=== PATIENT | male | born 1965 | race Caucasian/White ===

== ENCOUNTER → 2019-04-05 09:26 | Outpatient (CLI) | payer OTHER, SELFPAY ==
[2019-04-05 10:16] LABS: Add Manual Diff / Slide Review NO; Basophils Absolute Auto 0 /uL (0-100); Basophils Percent Auto 0.5 % (0-2); Eosinophils Absolute Auto 100 /uL (0-450); Eosinophils Percent Auto 1.5 % (2-4); Hematocrit 44.5 % (41-53); Hemoglobin 15.3 g/dL (13.5-17.5); Lymphocytes Absolute Auto 1800 /uL (1100-4500); Lymphocytes Percent Auto 20.2 % (25-40); Mean Corpuscular HGB Conc 34.4 % (30-36); Mean Corpuscular Hemoglobin 27.5 PG (26-34); Mean Corpuscular Volume 79.9 fL (80-100); Monocytes Absolute Auto 600 /uL (0-900); Monocytes Percent Auto 6.3 % (3-14); Neutrophils Absolute Auto 6300 /uL (1500-7000); Neutrophils Percent Auto 71.5 % (50-75); Platelet Count 287 X10^3/uL (150-400); Red Blood Cell Count 5.57 X10^6/uL (4.5-5.9); Red Cell Distribution Width 14.8 % (11.6-14.8); White Blood Cell Count 8.9 X10^3/uL (4.5-11.0)
[2019-04-05 10:22] LABS: HEMOLYSIS 16 (0-50); Iron 56 ug/dL (49-181)
[2019-04-05 10:24] LABS: Blood Urea Nitrogen 20 mg/dL (9-20); Calcium 9.7 mg/dL (8.4-10.2); Carbon Dioxide 31 mmol/L (22-32); Chloride 98 mmol/L (98-107); Estimated Glomerular Filt Rate > 60.0 mL/min (>60); Glucose 120 mg/dL (70-100); HEMOLYSIS 15 (0-50); Potassium 3.5 mmol/L (3.4-5.1); Sodium 139 mmol/L (137-145)
[2019-04-05 10:33] LABS: Percent Iron Saturation 16 % (20-50); Total Iron Binding Capacity 348 ug/dL (261-462); Transferrin 300 mg/dL (206-381)
[2019-04-05 10:42] LABS: Free T3, Triiodothyronine Free 2.89 pg/mL (2.77-5.27); Free T4, Direct Thyroxine 0.85 ng/dL (0.78-2.19)
[2019-04-05 10:55] LABS: Thyroid Stimulating Hormone 1.04 uIU/mL (0.47-4.68)
[2019-04-05 11:02] LABS: Ferritin 60.7 ng/mL (17.9-464)
[2019-04-05 11:16] LABS: Vitamin B12 528 pg/mL (239-931)
== END ==
PROVIDERS: Visit Provider Internal Medicine
DX: E03.9 Hypothyroidism, unspecified (principal); R60.9 Edema, unspecified; D64.9 Anemia, unspecified; E78.5 Hyperlipidemia, unspecified
CPT/HCPCS: 36415; 80048; 82607; 82728; 83540; 83550; 84439; 84443; 84481; 85025

== ENCOUNTER 2019-04-06 19:18 | Emergency (ER) | payer OTHER, SELFPAY ==
[2019-04-06 19:31] VITALS: BP 129/88; PULSE 100; RESP 14; TEMP 37.4; O2SAT 98
--- NOTE | 2019-04-06 19:35 | ED.ABDPAIN ---
HPI - Abdominal Pain General Chief Complaint: Abdominal Pain Stated Complaint: states severe abdominal pain Time Seen by Provider: 04/06/19 19:35 Source: patient Mode of arrival: ambulatory Limitations: no limitations History of Present Illness HPI narrative: 53-year-old individual here for evaluation of left lower abdomen pain. Patient states that it started within the past 24-36 hours. Patient does state that she has had diverticulitis in the past and this feels somewhat like that. 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 She also states that she has some urinary symptoms. No diarrhea. No constipation. No vomiting. No fevers. Related Data Previous Rx's Medication Instructions Recorded amoxicillin-pot clavulanate 1 tab PO Q8HR 7 Days #21 tab 04/06/19 [Augmentin] ondansetron HCl 4 mg PO Q6-8H PRN #10 tab 04/06/19 oxycodone-acetaminophen [Percocet] 1 tab PO Q4-6H PRN #10 tab 04/06/19 Allergies Allergy/AdvReac Type Severity Reaction Status Date / Time codeine Allergy Nausea Verified 04/06/19 20:56 Sulfa (Sulfonamide Allergy Hives Verified 04/06/19 20:57 Antibiotics) metronidazole [From Flagyl] AdvReac Nausea Verified 04/06/19 20:57 Review of Systems Constitutional Denies fever(s) Cardiovascular Denies chest pain and Denies dyspnea Respiratory Denies dyspnea Gastrointestinal Gastrointestinal: Reports abdominal pain, Denies change in stool character and Denies vomiting Genitourinary Reports dysuria Musculoskeletal Denies myalgias and Denies arthralgias Integumentary/Breasts Denies rash Hematologic/Lymphatic Denies easy bleeding and Denies easy bruising [facility] Medical History Diverticulitis (Acute) Social History lives independently: Yes Social History lives independently: Yes Exam Initial Vital Signs Initial Vital Signs: Vital Signs Temperature 99.4 F 04/06/19 19:31 Pulse Rate 100 H 04/06/19 19:31 Respiratory Rate 14 04/06/19 19:31 Blood Pressure 129/88 04/06/19 19:31 Pulse Oximetry 98 04/06/19 19:31 Const General: cooperative, well groomed and No acute distress Orientation: alert and awake HENMT Head: normal to inspection and normocephalic Resp Effort & Inspection: normal respiratory effort Cardio Rate: regular rate Rhythm: regular rhythm GI Inspection: non-distended Palpation: soft, No firm and tender (Left-sided abdomen with some guarding) Back/Spine/Pelvis Back: No CVA tenderness Skin Lesions: no lesions Rashes: no rashes Neuro General: alert and awake Cognition: normal cognition Speech: speech normal Extrem General: normal to inspection and capillary refill normal Psych Appearance: grossly normal and well kempt Course Orders Ordered: ED Orders 04/06/19 19:30 Complete Blood Count AUTO DIFF Stat Comprehensive Metabolic Panel Stat Lactate (Lactic Acid) Stat Lipase Stat 04/06/19 19:44 CT abdomen pelvis w con Stat Discontinued Medications Amoxicillin/Clavulanate Potassium (Augmentin 875-125 Mg) 1 tab PO NOW ONE Stop: 04/06/19 20:37 Last Admin: 04/06/19 20:52 Dose: 1 tab Sodium Chloride (Normal Saline 0.9%) 1,000 mls @ 1,000 mls/hr IV BOLUS ONE Stop: 04/06/19 20:42 Last Infusion: 04/06/19 22:16 Dose: 0 mls/hr Admin: 04/06/19 19:56 Dose: 1,000 mls/hr Morphine Sulfate (Morphine) 4 mg IV NOW ONE Stop: 04/06/19 19:44 Last Admin: 04/06/19 19:56 Dose: 4 mg Ondansetron HCl (Zofran) 4 mg IV NOW ONE Stop: 04/06/19 19:44 Last Admin: 04/06/19 19:56 Dose: 4 mg Vital Signs - 8 hr 04/06/19 19:31 04/06/19 22:17 Temperature 99.4 F 98.5 F Pulse Rate 100 H 88 Respiratory Rate 14 14 Blood Pressure 129/88 108/63 Pulse Oximetry 98 99 MDM - Abdominal Pain Lab Data Attestation: I reviewed the patient's lab results. Result diagrams: 04/06/19 19:30 04/06/19 19:30 Lab Results 04/06/19 04/06/19 04/06/19 Range/Units 19:30 19:30 19:30 WBC 13.2 H (4.5-11.0) X10^3/uL RBC 5.93 H (4.5-5.9) X10^6/uL Hgb 16.1 (13.5-17.5) g/dL Hct 47.4 (41-53) % MCV 79.8 L (80-100) fL MCH 27.1 (26-34) PG MCHC 34.0 (30-36) % RDW 14.4 (11.6-14.8) % Plt Count 293 (150-400) X10^3/uL Neut % (Auto) 78.8 H (50-75) % Lymph % (Auto) 13.8 L (25-40) % [place] % (Auto) 6.4 (3-14) % Eos % (Auto) 0.5 L (2-4) % Baso % (Auto) 0.5 (0-2) % Neut # (Auto) 92526 H (5590-5191) /uL Lymph # (Auto) 1800 (9769-2809) /uL [place] # (Auto) 800 (0-900) /uL Eos # (Auto) 100 (0-450) /uL Baso # (Auto) 100 (0-100) /uL Sodium 137 (137-145) mmol/L Potassium 3.3 L (3.4-5.1) mmol/L Chloride 96 L (98-107) mmol/L Carbon Dioxide 30 (22-32) mmol/L BUN 11 (9-20) mg/dL Creatinine 0.80 (0.66-1.25) mg/dL Estimated GFR > 60.0 (>60) mL/min BUN/Creatinine Ratio 13.8 (6-22) Glucose 109 H (70-100) mg/dL Lactate 0.7 (0.7-2.1) mmol/L Calcium 9.4 (8.4-10.2) mg/dL Total Bilirubin 0.9 (0.2-1.3) mg/dL AST 21 (17-59) IU/L ALT 21 (21-72) IU/L Alkaline Phosphatase 153 H (38-126) U/L Total Protein 8.2 (6.3-8.2) g/dL Albumin 4.7 (3.5-5.0) g/dL Globulin 3.5 (1.7-4.1) g/dL Albumin/Globulin Ratio 1.3 (1.0-2.8) Lipase 59 (23-300) U/L Point of care testing: Urine Dip Bedside Urine Glucose Negative Bedside Urine Occult Blood - Negative Bedside Urine Protein - Negative Bedside Urine Urobilinogen - Negative Bedside Urine Nitrite - Negative Bedside Urine Leukocytes - Negative Esterase Imaging Data CT scan - abdomen: Radiologist's impression: [address] [address] [address] Scan Report Signed Patient: Katia Galloway JMR#: [id number] : 1965Acct:[id number] Age/Sex: 53 / MDate of Service: 04/06/19 Loc: ED Accession Number: [id number] Procedure: CT abdomen pelvis w con Ordering Provider: Ramon Ron D.O. PROCEDURE: CT ABDOMEN PELVIS W CON INDICATIONS: Left-sided abdominal pain TECHNIQUE: After the administration of intravenous contrast, 5 mm thick sections acquired from the diaphragm to the symphysis. 5 mm coronal and sagittal reformats were acquired. For radiation dose reduction, the following was used: automated exposure control, adjustment of mA and/or kV according to patient size. COMPARISON: None. FINDINGS: Image quality: Excellent. ABDOMEN: Lung bases: Lung bases are clear. Heart size is normal. Solid organs: Liver is normal in size and enhancement. Gallbladder is unremarkable . Biliary system is non dilated. Pancreas enhances normally. Spleen is normal in size and enhancement. No adrenal nodules. Kidneys demonstrate normal size and enhancement, without hydronephrosis. Peritoneum and bowel: Moderate sigmoid colon diverticulitis, (2/63). Mild diverticulosis. There is mild thickening of the sigmoid colon. The appendix is located in the pelvis and is normal in caliber. Nodes and vessels: No retroperitoneal or mesenteric adenopathy by size criteria. Aorta and inferior vena cava are normal in size. Miscellaneous: Small fat-containing ventral abdominal wall hernias. PELVIS: Genitourinary: Bladder is unremarkable. The uterus is surgically absent. Ovaries appear normal. There is trace free fluid in the pelvis. Miscellaneous: Small fat containing angle hernias. No suspicious adenopathy. Bones: No suspicious bony lesions. No vertebral body compression fractures. IMPRESSION: Moderate sigmoid colon acute diverticulitis. No abscess demonstrated. Recommend followup CT or colonoscopy if not recently performed at resolution to evaluate for underlying mass lesion. Comment: Findings were discussed with Dr. Ramon Ron at the time of dictation. Dictated by: Sebastian Lantigua M.D. on 04/06/2019 at 20:18 Approved by: Sebastian Lantigua M.D. on 04/06/2019 at 20:29 MDM Narrative Medical decision making narrative: CT scan confirms diverticulitis. Urinalysis unremarkable. Patient states that she can take Percocet. She states she cannot take Flagyl because it makes her very nauseated. She has had Augmentin in the past. She was given dose of Augmentin here in the ER and tolerated without any problems. Will send home with Percocet and Zofran and a prescription for the Augmentin. She was given return precautions and follow-up instructions. She expressed understanding and agreement with plan. Discharge Plan Departure Patient Disposition: Home Clinical Impression: Diverticulitis Discharge Date/Time: 04/06/19 22:18 Interventions: ED Discharge Assessment Last Done: 04/06/19 22:17 Instructions: DI for Diverticulitis Activity Restrictions/Additional Instructions: Take the antibiotics as directed. Contact your primary provider on Monday for a follow-up. Return to the emergency department for any new or worsening symptoms Prescriptions: New ondansetron HCl 4 mg tablet 4 mg PO Q6-8H PRN (Reason: nausea and vomiting) Qty: 10 RF: 0 oxycodone-acetaminophen [Percocet] 5-325 mg tablet 1 tab PO Q4-6H PRN (Reason: pain) Qty: 10 RF: 0 amoxicillin-pot clavulanate [Augmentin] 875-125 mg tablet 1 tab PO Q8HR 7 Days Qty: 21 RF: 0
--- NOTE | 2019-04-06 19:44 | DI.CT.S_ITS ---
PROCEDURE: CT ABDOMEN PELVIS W CON INDICATIONS: Left-sided abdominal pain TECHNIQUE: After the administration of intravenous contrast, 5 mm thick sections acquired from the diaphragm to the symphysis. 5 mm coronal and sagittal reformats were acquired. For radiation dose reduction, the following was used: automated exposure control, adjustment of mA and/or kV according to patient size. COMPARISON: None. FINDINGS: Image quality: Excellent. ABDOMEN: Lung bases: Lung bases are clear. Heart size is normal. Solid organs: Liver is normal in size and enhancement. Gallbladder is unremarkable . Biliary system is non dilated. Pancreas enhances normally. Spleen is normal in size and enhancement. No adrenal nodules. Kidneys demonstrate normal size and enhancement, without hydronephrosis. Peritoneum and bowel: Moderate sigmoid colon diverticulitis, (2/63). Mild diverticulosis. There is mild thickening of the sigmoid colon. The appendix is located in the pelvis and is normal in caliber. Nodes and vessels: No retroperitoneal or mesenteric adenopathy by size criteria. Aorta and inferior vena cava are normal in size. Miscellaneous: Small fat-containing ventral abdominal wall hernias. PELVIS: Genitourinary: Bladder is unremarkable. The uterus is surgically absent. Ovaries appear normal. There is trace free fluid in the pelvis. Miscellaneous: Small fat containing angle hernias. No suspicious adenopathy. Bones: No suspicious bony lesions. No vertebral body compression fractures. IMPRESSION: Moderate sigmoid colon acute diverticulitis. No abscess demonstrated. Recommend followup CT or colonoscopy if not recently performed at resolution to evaluate for underlying mass lesion. Comment: Findings were discussed with Dr. Ramon Ron at the time of dictation. Dictated by: Sebastian Lantigua M.D. on 04/06/2019 at 20:18 Approved by: Sebastian Lantigua M.D. on 04/06/2019 at 20:29
[2019-04-06] MEDS: SODIUM CHLORIDE 0.9% 1,000 ML 1000 ML IV (19:56)
[2019-04-06] MEDS: ONDANSETRON 4 MG/2 ML INJ IV (19:56)
[2019-04-06] MEDS: MORPHINE 4 MG/ML INJ IV (19:56)
[2019-04-06 20:07] LABS: Alanine Aminotransferase 21 IU/L (21-72); Albumin 4.7 g/dL (3.5-5.0); Albumin Globulin Ratio 1.3 (1.0-2.8); Alkaline Phosphatase 153 U/L (38-126); Aspartate Aminotransferase 21 IU/L (17-59); BUN Creatinine Ratio 13.8 (6-22); Bilirubin Total 0.9 mg/dL (0.2-1.3); Blood Urea Nitrogen 11 mg/dL (9-20); Calcium 9.4 mg/dL (8.4-10.2); Carbon Dioxide 30 mmol/L (22-32); Chloride 96 mmol/L (98-107); Estimated Glomerular Filt Rate > 60.0 mL/min (>60); Globulin 3.5 g/dL (1.7-4.1); Glucose 109 mg/dL (70-100); HEMOLYSIS 18 (0-50); Lactate (Lactic Acid) 0.7 mmol/L (0.7-2.1); Lipase 59 U/L (23-300); Potassium 3.3 mmol/L (3.4-5.1); Sodium 137 mmol/L (137-145); Total Protein 8.2 g/dL (6.3-8.2)
[2019-04-06 20:24] LABS: Add Manual Diff / Slide Review NO; Basophils Absolute Auto 100 /uL (0-100); Basophils Percent Auto 0.5 % (0-2); Eosinophils Absolute Auto 100 /uL (0-450); Eosinophils Percent Auto 0.5 % (2-4); Hematocrit 47.4 % (41-53); Hemoglobin 16.1 g/dL (13.5-17.5); Lymphocytes Absolute Auto 1800 /uL (1100-4500); Lymphocytes Percent Auto 13.8 % (25-40); Mean Corpuscular Hemoglobin 27.1 PG (26-34); Mean Corpuscular Volume 79.8 fL (80-100); Monocytes Absolute Auto 800 /uL (0-900); Monocytes Percent Auto 6.4 % (3-14); Neutrophils Absolute Auto 10400 /uL (1500-7000); Neutrophils Percent Auto 78.8 % (50-75); Platelet Count 293 X10^3/uL (150-400); Red Blood Cell Count 5.93 X10^6/uL (4.5-5.9); Red Cell Distribution Width 14.4 % (11.6-14.8); White Blood Cell Count 13.2 X10^3/uL (4.5-11.0)
[2019-04-06] MEDS: AMOXICILLIN/CLAV 875/125 MG 1 TAB PO (20:52)
[2019-04-06 22:17] VITALS: BP 108/63; PULSE 88; RESP 14; TEMP 36.9; O2SAT 99
== END 2019-04-06 22:18 | disposition home or self-care (01) ==
PROVIDERS: Emergency Provider Emergency Medicine
DX: K57.92 Diverticulitis of intestine, part unspecified, without perforation or abscess without bleeding (principal)
CPT/HCPCS: 36591; 74177; 80053; 81003; 83605; 83690; 85025; 96361; 96374; 96375; 99283; 99284; J2270; J2405; Q9967

== ENCOUNTER → 2019-04-22 15:40 | Outpatient (CLI) | payer OTHER, SELFPAY ==
[2019-04-22 16:05] LABS: Add Manual Diff / Slide Review NO; Basophils Absolute Auto 100 /uL (0-100); Basophils Percent Auto 1.4 % (0-2); Eosinophils Absolute Auto 200 /uL (0-450); Eosinophils Percent Auto 1.8 % (2-4); Hematocrit 44.8 % (36-46); Lymphocytes Absolute Auto 2300 /uL (1100-4500); Lymphocytes Percent Auto 23.4 % (25-40); Mean Corpuscular HGB Conc 33.5 % (30-36); Mean Corpuscular Hemoglobin 26.9 PG (26-34); Mean Corpuscular Volume 80.2 fL (80-100); Monocytes Absolute Auto 700 /uL (0-900); Monocytes Percent Auto 6.9 % (3-14); Neutrophils Absolute Auto 6600 /uL (1500-7000); Neutrophils Percent Auto 66.5 % (50-75); Platelet Count 329 X10^3/uL (150-400); Red Blood Cell Count 5.59 X10^6/uL (4.0-5.2); Red Cell Distribution Width 14.1 % (11.6-14.8)
[2019-04-22 16:29] LABS: Erythrocyte Sedimentation Rate 4 MM/HR (0-20)
[2019-04-22 17:21] LABS: Alanine Aminotransferase 11 IU/L (9-52); Albumin 4.3 g/dL (3.5-5.0); Albumin Globulin Ratio 1.5 (1.0-2.8); Alkaline Phosphatase 135 U/L (38-126); Aspartate Aminotransferase 17 IU/L (14-36); BUN Creatinine Ratio 24.3 (6-22); Bilirubin Total 0.3 mg/dL (0.2-1.3); Blood Urea Nitrogen 17 mg/dL (7-17); Calcium 9.5 mg/dL (8.4-10.2); Carbon Dioxide 32 mmol/L (22-32); Chloride 96 mmol/L (98-107); Estimated Glomerular Filt Rate > 60.0 mL/min (>60); Globulin 2.9 g/dL (1.7-4.1); Glucose 92 mg/dL (70-100); HEMOLYSIS < 15 (0-50); Potassium 3.9 mmol/L (3.4-5.1); Sodium 137 mmol/L (137-145); Total Protein 7.2 g/dL (6.3-8.2)
== END ==
PROVIDERS: PCP Internal Medicine; Visit Provider Internal Medicine
DX: K57.32 Diverticulitis of large intestine without perforation or abscess without bleeding (principal)
CPT/HCPCS: 36415; 80053; 85025; 85651

== ENCOUNTER → 2019-04-23 12:46 | Outpatient (CLI) | payer OTHER, SELFPAY ==
--- NOTE | 2019-04-23 | DI.CT.S_ITS ---
PROCEDURE: CT ABDOMEN PELVIS W CON INDICATIONS: Diverticulitis of large intestine TECHNIQUE: After the administration of oral and intravenous contrast, 5 mm thick sections acquired from the diaphragms to the symphysis. 5 mm thick coronal and sagittal reformats were performed. For radiation dose reduction, the following was used: automated exposure control, adjustment of mA and/or kV according to patient size. COMPARISON: [facility], CT, CT ABDOMEN PELVIS W CON, 04/06/2019, 19:51. FINDINGS: Image quality: Excellent. ABDOMEN: Lung bases: Lung bases are clear. Heart size is normal. Solid organs: Liver is normal in size and enhancement. Gallbladder appears normal. Biliary system is non-dilated. Pancreas enhances normally. Spleen is normal in size and enhancement. No adrenal nodules. Kidneys are normal in size and enhancement, without hydronephrosis. Peritoneum and bowel: Stomach, small bowel, and colon loops are normal in caliber and wall thickness. No free fluid or air. Several surgical clips are present in the epigastrium near the stomach. Nodes and vessels: No retroperitoneal or mesenteric adenopathy. Aorta and inferior vena cava are normal in caliber. Miscellaneous: No ventral hernias. PELVIS: Genitourinary: Bladder wall thickness is normal. Miscellaneous: No inguinal hernias or adenopathy. Acute diverticulitis present 04/06/19 at the left lower quadrant has resolved. Diverticulosis in this area remains present but no acute diverticulitis is found. There is an air-filled tubular structure that had been previously identified and is better seen on the current study that represents a relatively elongated but uninflamed appendix, crossing the midline posteriorly and terminating with its tip adjacent to the left ovary which contains a 2.6 cm cyst. Bones: No suspicious bony lesions. No vertebral body compression fractures. IMPRESSION: Resolution of acute diverticulitis present at the end of March of this year. This was located at the left lower quadrant, sigmoid colon origin. Sigmoid diverticulosis remains but no acute diverticulitis is currently present. The prior study had identified a small tubular gas-filled structure of uncertain origin and clinical significance. It is better seen on this study and represents a relatively elongated but otherwise normal appendix. The appendiceal tip terminates adjacent to the left ovary which contains a 2.6 cm simple appearing cyst. No followup of this finding is recommended. Dictated by: Karri Carrington M.D. on 04/23/2019 at 16:33 Approved by: Karri Carrington M.D. on 04/23/2019 at 16:43
== END ==
PROVIDERS: PCP Internal Medicine; Visit Provider Internal Medicine
DX: K57.30 Diverticulosis of large intestine without perforation or abscess without bleeding (principal); N83.202 Unspecified ovarian cyst, left side
CPT/HCPCS: 74177; Q9967

== ENCOUNTER → 2019-06-13 12:06 | Outpatient (CLI) | payer OTHER, SELFPAY | PROVIDERS: PCP Internal Medicine | DX: Z23 Encounter for immunization (principal) | CPT/HCPCS: 90471; 90686 ==

== ENCOUNTER → 2019-08-14 07:53 | Outpatient (CLI) | payer OTHER, SELFPAY ==
--- NOTE | 2019-08-14 | DI.MG.S_ITS ---
BILATERAL DIGITAL SCREENING MAMMOGRAM 3D/2D WITH CAD: 08/14/2019 CLINICAL: Routine screening. Comparison is made to exams dated: 04/23/2018 mammogram and 03/01/2017 mammogram - [facility]. There are scattered fibroglandular elements in both breasts. Current study was also evaluated with a Computer Aided Detection (CAD) system. No significant masses, calcifications, or other findings are seen in either breast. There has been no significant interval change. IMPRESSION: NEGATIVE There is no mammographic evidence of malignancy. A 1 year screening mammogram is recommended. This exam was interpreted at Station ID: [id number]. NOTE: For mammograms, a report in lay terms will be sent to the patient. Approximately 15% of breast malignancies will not be visualized mammographically. In the management of a palpable breast mass, a negative mammogram must not discourage biopsy of a clinically suspicious lesion. Electronically Signed By: Deon rojas/antonino:08/14/2019 11:20:53 letter sent: Normal Exam ACR BI-RADS Category 1: Negative 3341F
== END ==
PROVIDERS: PCP Family Medicine; Visit Provider Family Medicine
DX: Z12.31 Encounter for screening mammogram for malignant neoplasm of breast (principal)
CPT/HCPCS: 77063; 77067

== ENCOUNTER → 2019-10-08 07:12 | Outpatient (CLI) | payer OTHER, SELFPAY ==
[2019-10-08 08:15] LABS: Add Manual Diff / Slide Review NO; Basophils Absolute Auto 100 /uL (0-100); Basophils Percent Auto 0.8 % (0-2); Eosinophils Absolute Auto 200 /uL (0-450); Eosinophils Percent Auto 2.8 % (2-4); Hematocrit 44.8 % (36-46); Lymphocytes Absolute Auto 1700 /uL (1100-4500); Mean Corpuscular HGB Conc 33.5 % (30-36); Mean Corpuscular Hemoglobin 26.9 PG (26-34); Mean Corpuscular Volume 80.3 fL (80-100); Monocytes Absolute Auto 500 /uL (0-900); Monocytes Percent Auto 6.7 % (3-14); Neutrophils Absolute Auto 5000 /uL (1500-7000); Neutrophils Percent Auto 66.7 % (50-75); Platelet Count 300 X10^3/uL (150-400); Red Blood Cell Count 5.58 X10^6/uL (4.0-5.2); Red Cell Distribution Width 14.8 % (11.6-14.8); White Blood Cell Count 7.5 X10^3/uL (4.5-11.0)
[2019-10-08 08:22] LABS: Hemoglobin A1C% w Est Avg Glu 5.2 % (4.0-6.0)
[2019-10-08 08:35] LABS: Erythrocyte Sedimentation Rate 3 MM/HR (0-20)
[2019-10-08 08:41] LABS: Iron 54 ug/dL (37-170)
[2019-10-08 08:46] LABS: Alanine Aminotransferase 34 IU/L (<35); Albumin 4.4 g/dL (3.5-5.0); Albumin Globulin Ratio 1.3 (1.0-2.8); Alkaline Phosphatase 112 U/L (38-126); Aspartate Aminotransferase 32 IU/L (14-36); BUN Creatinine Ratio 22.5 (6-22); Bilirubin Total 0.5 mg/dL (0.2-1.3); Blood Urea Nitrogen 18 mg/dL (7-17); C-Reactive Protein Quant 2.8 mg/dL (<1.0); Calcium 9.3 mg/dL (8.4-10.2); Carbon Dioxide 33 mmol/L (22-32); Chloride 97 mmol/L (98-107); Estimated Glomerular Filt Rate > 60.0 mL/min (>60); Globulin 3.3 g/dL (1.7-4.1); Glucose 101 mg/dL (70-100); HEMOLYSIS < 15 (0-50); Potassium 3.4 mmol/L (3.4-5.1); Sodium 138 mmol/L (137-145); Total Protein 7.7 g/dL (6.3-8.2)
[2019-10-08 08:52] LABS: Total Iron Binding Capacity 326 ug/dL (265-497)
[2019-10-08 08:59] LABS: Free T4, Direct Thyroxine 1.25 ng/dL (0.78-2.19)
[2019-10-08 09:13] LABS: Thyroid Stimulating Hormone 0.27 uIU/mL (0.47-4.68)
[2019-10-08 09:16] LABS: Ferritin 52.5 ng/mL (11.1-264)
[2019-10-08 09:47] LABS: Folate 6.2 ng/mL (2.76-20.0); Vitamin B12 518 pg/mL (239-931)
[2019-10-10 11:54] LABS: Triiodothyronine T3 Total 118 ng/dL (76-181)
[2019-10-16 08:30] LABS: ANA Screen, IFA POSITIVE (NEGATIVE)
== END ==
PROVIDERS: PCP Internal Medicine; Visit Provider Internal Medicine
DX: R73.9 Hyperglycemia, unspecified (principal); E03.9 Hypothyroidism, unspecified; E83.10 Disorder of iron metabolism, unspecified; G89.4 Chronic pain syndrome; I10 Essential (primary) hypertension; G31.84 Mild cognitive impairment of uncertain or unknown etiology
CPT/HCPCS: 36415; 80053; 82607; 82728; 82746; 83036; 83540; 83550; 84439; 84443; 84480; 85025; 85651; 86038; 86140

== ENCOUNTER → 2019-10-29 08:02 | Outpatient (CLI) | payer OTHER, SELFPAY ==
--- NOTE | 2019-10-29 | DI.MRI.S_ITS ---
PROCEDURE: MR HEAD/BRAIN WO/W CON INDICATIONS: Weakness TECHNIQUE: Noncontrast axial T1 spin echo, axial T2 fast spin echo, sagittal and axial FLAIR, coronal T2 fast spin echo, axial gradient echo, axial diffusion and ADC through the brain. After the administration of contrast, axial and coronal 3D VIBE or T1 spin echo with fat saturation through the brain. COMPARISON: None. FINDINGS: Image quality: Excellent. CSF Spaces: Basal cisterns are patent. No extra-axial fluid collections. Ventricles are normal in size and shape. Brain: No midline shift. No intracranial bleeds or masses. No abnormal intracranial enhancement. The brainstem appears normal. Diffusion-weighted images demonstrate no acute ischemic insults. No chronic ischemic insults. Normal intravascular flow voids are present. Skull and face: Calvarial marrow is normal in signal. Orbits appear normal. Sinuses: Sinuses and mastoids appear clear. IMPRESSION: Normal for age, source of current symptoms is not seen. Dictated by: Karri Carrington M.D. on 10/29/2019 at 9:17 Approved by: Karri Carrington M.D. on 10/29/2019 at 9:19
== END ==
PROVIDERS: PCP Internal Medicine; Referring Provider Internal Medicine; Visit Provider Internal Medicine
DX: R53.1 Weakness (principal); R41.3 Other amnesia; G35 Multiple sclerosis
CPT/HCPCS: 70553

== ENCOUNTER → 2019-11-15 08:10 | Outpatient (CLI) | payer OTHER, SELFPAY ==
[2019-11-15 08:28] LABS: UR Morphine/Opiate cutoff 300 Negative (Negative); Ur Creatinine Normal (Normal); Ur Specific Gravity Normal (Normal); Urine Amphetamines Negative (Negative); Urine Barbiturates Negative (Negative); Urine Benzodiazepines Negative (Negative); Urine Cocaine Negative (Negative); Urine MDMA Negative (Negative); Urine Methadone Negative (Negative); Urine Methamphetamines Negative (Negative); Urine Oxycodone Negative (Negative); Urine Phencyclidine Negative (Negative); Urine Tetrahydrocannabinol Negative (Negative); Urine Tricyclic Antidepressant Negative (Negative); Urine pH Normal (Normal)
== END ==
PROVIDERS: PCP Internal Medicine; Visit Provider Family Medicine Sleep Medicine
DX: G47.33 Obstructive sleep apnea (adult) (pediatric) (principal); G47.12 Idiopathic hypersomnia without long sleep time; G47.19 Other hypersomnia; G47.00 Insomnia, unspecified; Z87.898 Personal history of other specified conditions
CPT/HCPCS: 80305; 95805

== ENCOUNTER → 2019-12-03 07:19 | Outpatient (CLI) | payer OTHER, SELFPAY ==
[2019-12-03 09:29] LABS: Free T4, Direct Thyroxine 1.18 ng/dL (0.78-2.19)
[2019-12-03 09:43] LABS: Thyroid Stimulating Hormone 0.16 uIU/mL (0.47-4.68)
[2019-12-04 08:38] LABS: Triiodothyronine T3 Total 97 ng/dL (71-180)
== END ==
PROVIDERS: PCP Internal Medicine; Referring Provider Internal Medicine; Visit Provider Internal Medicine
DX: E03.9 Hypothyroidism, unspecified (principal)
CPT/HCPCS: 36415; 84439; 84443; 84480

== ENCOUNTER → 2019-12-09 15:56 | Outpatient (CLI) | payer OTHER, SELFPAY ==
[2019-12-11 02:07] LABS: COVID19 Sendout Not Detected (Not Detected)
== END ==
PROVIDERS: PCP Internal Medicine; Visit Provider Family Medicine
DX: R68.89 Other general symptoms and signs (principal)
CPT/HCPCS: 87635

== ENCOUNTER → 2020-02-04 07:01 | Outpatient (CLI) | payer OTHER, SELFPAY ==
[2020-02-04 08:35] LABS: Add Manual Diff / Slide Review NO; Basophils Absolute Auto 100 /uL (0-100); Eosinophils Absolute Auto 200 /uL (0-450); Eosinophils Percent Auto 2.6 % (2-4); Hematocrit 43.4 % (36-46); Hemoglobin 14.6 g/dL (12.0-16.0); Lymphocytes Absolute Auto 1900 /uL (1100-4500); Mean Corpuscular HGB Conc 33.7 % (30-36); Mean Corpuscular Hemoglobin 26.7 PG (26-34); Mean Corpuscular Volume 79.2 fL (80-100); Monocytes Absolute Auto 500 /uL (0-900); Monocytes Percent Auto 6.6 % (3-14); Neutrophils Absolute Auto 4700 /uL (1500-7000); Neutrophils Percent Auto 63.8 % (50-75); Platelet Count 303 X10^3/uL (150-400); Red Blood Cell Count 5.48 X10^6/uL (4.0-5.2); Red Cell Distribution Width 14.2 % (11.6-14.8); White Blood Cell Count 7.3 X10^3/uL (4.5-11.0)
[2020-02-04 09:37] LABS: Alanine Aminotransferase 26 IU/L (<35); Albumin 4.4 g/dL (3.5-5.0); Albumin Globulin Ratio 1.4 (1.0-2.8); Alkaline Phosphatase 117 U/L (38-126); Aspartate Aminotransferase 29 IU/L (14-36); BUN Creatinine Ratio 21.4 (6-22); Bilirubin Total 0.5 mg/dL (0.2-1.3); Blood Urea Nitrogen 18 mg/dL (7-17); Calcium 9.4 mg/dL (8.4-10.2); Carbon Dioxide 32 mmol/L (22-32); Chloride 98 mmol/L (98-107); Estimated Glomerular Filt Rate > 60.0 mL/min (>60); Globulin 3.2 g/dL (1.7-4.1); Glucose 104 mg/dL (70-100); HEMOLYSIS < 15 (0-50); Potassium 3.6 mmol/L (3.4-5.1); Sodium 138 mmol/L (137-145); Total Protein 7.6 g/dL (6.3-8.2)
== END ==
PROVIDERS: PCP Internal Medicine; Referring Provider Internal Medicine Rheumatology; Visit Provider Internal Medicine Rheumatology
DX: Z79.899 Other long term (current) drug therapy (principal)
CPT/HCPCS: 36415; 80053; 85025

== ENCOUNTER → 2020-02-17 10:54 | Outpatient (CLI) | payer OTHER, SELFPAY ==
[2020-02-17 11:54] LABS: Add Manual Diff / Slide Review NO; Basophils Absolute Auto 100 /uL (0-100); Basophils Percent Auto 0.7 % (0-2); Eosinophils Absolute Auto 200 /uL (0-450); Eosinophils Percent Auto 2.2 % (2-4); Hematocrit 42.3 % (36-46); Hemoglobin 14.3 g/dL (12.0-16.0); Lymphocytes Absolute Auto 2100 /uL (1100-4500); Lymphocytes Percent Auto 25.4 % (25-40); Mean Corpuscular HGB Conc 33.7 % (30-36); Mean Corpuscular Hemoglobin 26.7 PG (26-34); Mean Corpuscular Volume 79.2 fL (80-100); Monocytes Absolute Auto 500 /uL (0-900); Monocytes Percent Auto 6.3 % (3-14); Neutrophils Absolute Auto 5400 /uL (1500-7000); Neutrophils Percent Auto 65.4 % (50-75); Platelet Count 299 X10^3/uL (150-400); Red Blood Cell Count 5.33 X10^6/uL (4.0-5.2); Red Cell Distribution Width 14.7 % (11.6-14.8); White Blood Cell Count 8.2 X10^3/uL (4.5-11.0)
[2020-02-17 12:10] LABS: Alanine Aminotransferase 28 IU/L (<35); Albumin 4.5 g/dL (3.5-5.0); Albumin Globulin Ratio 1.5 (1.0-2.8); Alkaline Phosphatase 121 U/L (38-126); Aspartate Aminotransferase 28 IU/L (14-36); BUN Creatinine Ratio 21.5 (6-22); Bilirubin Total 0.5 mg/dL (0.2-1.3); Blood Urea Nitrogen 20 mg/dL (7-17); Calcium 9.6 mg/dL (8.4-10.2); Carbon Dioxide 32 mmol/L (22-32); Chloride 98 mmol/L (98-107); Estimated Glomerular Filt Rate > 60.0 mL/min (>60); Globulin 3.1 g/dL (1.7-4.1); Glucose 115 mg/dL (70-100); HEMOLYSIS < 15 (0-50); Potassium 3.6 mmol/L (3.4-5.1); Sodium 139 mmol/L (137-145); Total Protein 7.6 g/dL (6.3-8.2)
== END ==
PROVIDERS: PCP Internal Medicine; Referring Provider Internal Medicine Rheumatology; Visit Provider Internal Medicine Rheumatology
DX: Z79.899 Other long term (current) drug therapy (principal); M06.09 Rheumatoid arthritis without rheumatoid factor, multiple sites
CPT/HCPCS: 36415; 80053; 85025

== ENCOUNTER → 2020-03-03 13:38 | Outpatient (CLI) | payer OTHER, SELFPAY ==
[2020-03-04 10:45] LABS: COVID19 Sendout NOT DETECTED (Not Detect)
== END ==
PROVIDERS: PCP Internal Medicine; Visit Provider Physician Assistant
DX: Z01.812 Encounter for preprocedural laboratory examination (principal)
CPT/HCPCS: 87635

== ENCOUNTER → 2020-03-17 08:09 | Outpatient (CLI) | payer OTHER, SELFPAY ==
[2020-03-17 08:51] LABS: Add Manual Diff / Slide Review NO; Basophils Absolute Auto 100 /uL (0-100); Basophils Percent Auto 0.8 % (0-2); Eosinophils Absolute Auto 200 /uL (0-450); Eosinophils Percent Auto 2.3 % (2-4); Hematocrit 42.8 % (36-46); Hemoglobin 14.1 g/dL (12.0-16.0); Lymphocytes Absolute Auto 1600 /uL (1100-4500); Mean Corpuscular HGB Conc 32.8 % (30-36); Mean Corpuscular Hemoglobin 26.2 PG (26-34); Mean Corpuscular Volume 79.9 fL (80-100); Monocytes Absolute Auto 500 /uL (0-900); Monocytes Percent Auto 7.2 % (3-14); Neutrophils Absolute Auto 4600 /uL (1500-7000); Neutrophils Percent Auto 66.7 % (50-75); Platelet Count 281 X10^3/uL (150-400); Red Blood Cell Count 5.36 X10^6/uL (4.0-5.2); Red Cell Distribution Width 15.7 % (11.6-14.8); White Blood Cell Count 6.9 X10^3/uL (4.5-11.0)
[2020-03-17 09:01] LABS: Alanine Aminotransferase 26 IU/L (<35); Albumin 4.5 g/dL (3.5-5.0); Albumin Globulin Ratio 1.6 (1.0-2.8); Alkaline Phosphatase 113 U/L (38-126); Aspartate Aminotransferase 27 IU/L (14-36); BUN Creatinine Ratio 24.7 (6-22); Bilirubin Total 0.7 mg/dL (0.2-1.3); Blood Urea Nitrogen 21 mg/dL (7-17); Calcium 9.8 mg/dL (8.4-10.2); Carbon Dioxide 34 mmol/L (22-32); Chloride 100 mmol/L (98-107); Estimated Glomerular Filt Rate > 60.0 mL/min (>60); Globulin 2.9 g/dL (1.7-4.1); Glucose 80 mg/dL (70-100); HEMOLYSIS < 15 (0-50); Potassium 3.3 mmol/L (3.4-5.1); Sodium 140 mmol/L (137-145); Total Protein 7.4 g/dL (6.3-8.2)
== END ==
PROVIDERS: PCP Internal Medicine; Referring Provider Internal Medicine Rheumatology; Visit Provider Internal Medicine Rheumatology
DX: Z79.899 Other long term (current) drug therapy (principal); M06.09 Rheumatoid arthritis without rheumatoid factor, multiple sites
CPT/HCPCS: 36415; 80053; 85025

== ENCOUNTER → 2020-04-28 08:01 | Outpatient (CLI) | payer OTHER, SELFPAY ==
[2020-04-28 10:28] LABS: Free T4, Direct Thyroxine 1.06 ng/dL (0.78-2.19)
[2020-04-28 10:42] LABS: Thyroid Stimulating Hormone 0.208 uIU/mL (0.47-4.68)
[2020-04-29 07:13] LABS: Triiodothyronine T3 Total 93 ng/dL (71-180)
== END ==
PROVIDERS: PCP Internal Medicine; Referring Provider Internal Medicine; Visit Provider Internal Medicine
DX: E03.9 Hypothyroidism, unspecified (principal)
CPT/HCPCS: 36415; 84439; 84443; 84480

== ENCOUNTER → 2020-05-05 15:28 | Outpatient (CLI) | payer OTHER, SELFPAY ==
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
== END ==
PROVIDERS: PCP Student in an Organized Health Care Education/Training Program; Referring Provider Registered Nurse Diabetes Educator; Visit Provider Registered Nurse Diabetes Educator
DX: M54.5 Low back pain (principal); M47.816 Spondylosis without myelopathy or radiculopathy, lumbar region; M25.551 Pain in right hip; M16.0 Bilateral primary osteoarthritis of hip
CPT/HCPCS: 72100; 73502

== ENCOUNTER → 2020-05-27 10:11 | Outpatient (CLI) | payer OTHER, SELFPAY | PROVIDERS: PCP Student in an Organized Health Care Education/Training Program; Referring Provider Student in an Organized Health Care Education/Training Program; Visit Provider Student in an Organized Health Care Education/Training Program | DX: M06.09 Rheumatoid arthritis without rheumatoid factor, multiple sites (principal); M06.4 Inflammatory polyarthropathy | CPT/HCPCS: 86317; 86480; 86704; 86803; 87340 ==

== ENCOUNTER → 2020-06-04 15:14 | Outpatient (CLI) | payer OTHER, SELFPAY ==
[2020-06-05 18:07] LABS: Anti Thyroglobulin Antibody <1.0 IU/mL (0.0-0.9); Thyroid Peroxidase Antibodies 10 IU/mL (0-34)
== END ==
PROVIDERS: PCP Student in an Organized Health Care Education/Training Program; Referring Provider Student in an Organized Health Care Education/Training Program; Visit Provider Student in an Organized Health Care Education/Training Program
DX: E03.9 Hypothyroidism, unspecified (principal)
CPT/HCPCS: 86376; 86800

== ENCOUNTER → 2020-06-11 13:39 | Outpatient (CLI) | payer OTHER, SELFPAY ==
[2020-06-14 22:36] LABS: Anti Thyroglobulin Antibody <1.0 IU/mL (0.0-0.9)
[2020-06-17 05:12] LABS: Thyroglobulin Level <2.0 ng/mL (.)
== END ==
PROVIDERS: PCP Student in an Organized Health Care Education/Training Program; Referring Provider Student in an Organized Health Care Education/Training Program; Visit Provider Student in an Organized Health Care Education/Training Program
DX: E03.9 Hypothyroidism, unspecified (principal)
CPT/HCPCS: 36415; 84432; 86800

== ENCOUNTER → 2020-07-21 | Outpatient (CLI) | payer OTHER, SELFPAY | PROVIDERS: PCP Student in an Organized Health Care Education/Training Program; Referring Provider Internal Medicine; Visit Provider Internal Medicine | DX: Z23 Encounter for immunization (principal) | CPT/HCPCS: 90471; 90686 ==

== ENCOUNTER → 2020-07-24 07:12 | Outpatient (CLI) | payer OTHER, SELFPAY ==
[2020-07-24 09:14] LABS: Cancer Antigen 125 6.6 U/mL (0-35)
== END ==
PROVIDERS: PCP Student in an Organized Health Care Education/Training Program; Referring Provider Obstetrics & Gynecology; Visit Provider Obstetrics & Gynecology
DX: N83.202 Unspecified ovarian cyst, left side (principal)
CPT/HCPCS: 36415; 86304

== ENCOUNTER → 2020-09-16 16:20 | Outpatient (CLI) | payer OTHER, SELFPAY ==
[2020-09-16] MEDS: COVID-19 VACC(MODERNA-1)/PF 100 MCG/0.5 ML VIAL IM (16:47)
== END ==
PROVIDERS: PCP Student in an Organized Health Care Education/Training Program; Visit Provider Internal Medicine
DX: Z23 Encounter for immunization (principal)
CPT/HCPCS: 0011A; 91301

== ENCOUNTER → 2020-10-23 15:01 | Outpatient (CLI) | payer OTHER, SELFPAY ==
[2020-10-23] MEDS: COVID-19 VACC #2, MRNA(MOD) 100 MCG/0.5 ML VIAL IM (15:07)
== END ==
PROVIDERS: PCP Student in an Organized Health Care Education/Training Program; Visit Provider Internal Medicine
DX: Z23 Encounter for immunization (principal)
CPT/HCPCS: 0012A; 91301

== ENCOUNTER → 2021-02-05 07:38 | Outpatient (CLI) | payer OTHER, SELFPAY ==
[2021-02-05 08:33] LABS: Add Manual Diff / Slide Review NO; Basophils Absolute Auto 0 /uL (0-100); Basophils Percent Auto 0.5 % (0-2); Eosinophils Absolute Auto 300 /uL (0-450); Eosinophils Percent Auto 2.8 % (2-4); Hematocrit 42.7 % (36-46); Hemoglobin 14.1 g/dL (12.0-16.0); Lymphocytes Absolute Auto 2800 /uL (1100-4500); Lymphocytes Percent Auto 29.6 % (25-40); Mean Corpuscular Hemoglobin 26.5 PG (26-34); Mean Corpuscular Volume 80.3 fL (80-100); Monocytes Absolute Auto 700 /uL (0-900); Neutrophils Absolute Auto 5700 /uL (1500-7000); Neutrophils Percent Auto 60.1 % (50-75); Platelet Count 250 X10^3/uL (150-400); Red Blood Cell Count 5.32 X10^6/uL (4.0-5.2); Red Cell Distribution Width 14.4 % (11.6-14.8); White Blood Cell Count 9.6 X10^3/uL (4.5-11.0)
[2021-02-05 08:49] LABS: Alanine Aminotransferase 16 IU/L (<35); Albumin Globulin Ratio 1.3 (1.0-2.8); Alkaline Phosphatase 101 U/L (38-126); Aspartate Aminotransferase 19 IU/L (14-36); BUN Creatinine Ratio 29.5 (6-22); Bilirubin Total 0.4 mg/dL (0.2-1.3); Blood Urea Nitrogen 23 mg/dL (7-17); C-Reactive Protein Quant 2.3 mg/dL (<1.0); Calcium 9.3 mg/dL (8.4-10.2); Carbon Dioxide 35 mmol/L (22-32); Chloride 100 mmol/L (98-107); Estimated Glomerular Filt Rate > 60.0 mL/min (>60); Glucose 82 mg/dL (70-100); HEMOLYSIS < 15 (0-50); Potassium 4.1 mmol/L (3.4-5.1); Sodium 138 mmol/L (137-145)
[2021-02-05 09:00] LABS: Erythrocyte Sedimentation Rate 4 MM/HR (0-20)
[2021-02-05 09:13] LABS: Vitamin D 25 Hydroxy (D3) 31.7 ng/mL (30.0-100.0)
[2021-02-05 09:30] LABS: TSH w/ Reflex to FT4 0.51 uIU/mL (0.47-4.68)
[2021-02-05 09:34] LABS: Vitamin B12 597 pg/mL (239-931)
== END ==
PROVIDERS: PCP Student in an Organized Health Care Education/Training Program; Referring Provider Student in an Organized Health Care Education/Training Program; Visit Provider Student in an Organized Health Care Education/Training Program
DX: F68.8 Other specified disorders of adult personality and behavior (principal); R20.2 Paresthesia of skin; Z90.49 Acquired absence of other specified parts of digestive tract
CPT/HCPCS: 36415; 80053; 82306; 82607; 84443; 85025; 85651; 86140

== ENCOUNTER → 2021-02-12 11:03 | Outpatient (CLI) | payer OTHER, SELFPAY ==
--- NOTE | 2021-02-12 11:04 | DI.MRI.S_ITS ---
PROCEDURE: MR HEAD/BRAIN WO CON INDICATIONS: Personality change, migrating parasthesia TECHNIQUE: Non-contrast axial T1 spin echo, axial T2 fast spin echo, sagittal and axial FLAIR, coronal T2 fast spin echo, axial gradient echo, axial diffusion and ADC through the brain. COMPARISON: [facility], MR, MR HEAD/BRAIN WO/W CON, 10/29/2019, 8:24. FINDINGS: Image quality: Excellent. CSF spaces: Ventricles appear symmetric in size and shape. Basal cisterns are patent. No extra-axial fluid collections. Brain: Midline structures are within normal limits. No restricted diffusion to indicate recent ischemia. The major intracranial vascular flow-related signal voids are maintained. There is no brain parenchymal FLAIR signal abnormality. No abnormal intracranial susceptibility. Skull and face: Calvarial bone marrow is normal in signal. Orbits are normal. Sinuses: Sinuses and mastoids are clear. IMPRESSION: Unremarkable MRI of the brain. Dictated by: Phan Pelayo M.D. on 02/12/2021 at 11:48 Approved by: Phan Pelayo M.D. on 02/12/2021 at 11:49
== END ==
PROVIDERS: PCP Student in an Organized Health Care Education/Training Program; Referring Provider Student in an Organized Health Care Education/Training Program; Visit Provider Student in an Organized Health Care Education/Training Program
DX: F68.8 Other specified disorders of adult personality and behavior (principal); R20.2 Paresthesia of skin
CPT/HCPCS: 70551

== ENCOUNTER → 2021-02-24 15:06 | Outpatient (CLI) | payer OTHER, SELFPAY ==
[2021-02-24 17:58] LABS: Folate 9.1 ng/mL (2.76-20.0)
[2021-02-25 15:42] LABS: Lead, Blood < 1 ug/dL (0-4)
[2021-02-27 13:44] LABS: Vitamin B1 116.3 nmol/L (66.5-200.0)
== END ==
PROVIDERS: PCP Student in an Organized Health Care Education/Training Program; Referring Provider Student in an Organized Health Care Education/Training Program; Visit Provider Student in an Organized Health Care Education/Training Program
DX: F68.8 Other specified disorders of adult personality and behavior (principal); R41.3 Other amnesia
CPT/HCPCS: 36415; 82175; 82746; 83655; 83825; 84425

== ENCOUNTER → 2021-06-12 09:12 | Outpatient (CLI) | payer OTHER, SELFPAY ==
[2021-06-12 10:56] LABS: Influenza A - CEPHEID Flu A NEGATIVE (NEGATIVE); Influenza B - CEPHEID Flu B NEGATIVE (NEGATIVE)
[2021-06-12 11:01] LABS: COVID19 -Nasal RAPID Negative (Negative)
== END ==
PROVIDERS: PCP Student in an Organized Health Care Education/Training Program; Visit Provider Physician Assistant
DX: Z20.822 Contact with and (suspected) exposure to COVID-19 (principal); R05.9 Cough, unspecified
CPT/HCPCS: 87502; 87635

== ENCOUNTER → 2021-06-15 07:32 | Outpatient (CLI) | payer OTHER, SELFPAY ==
[2021-06-15 07:54] LABS: COVID19 -Nasal RAPID Negative (Negative)
== END ==
PROVIDERS: PCP Student in an Organized Health Care Education/Training Program; Referring Provider Nurse Practitioner Family; Visit Provider Nurse Practitioner Family
DX: Z20.822 Contact with and (suspected) exposure to COVID-19 (principal)
CPT/HCPCS: 87635

== ENCOUNTER → 2021-06-24 | Outpatient (CLI) | payer OTHER, SELFPAY | PROVIDERS: PCP Student in an Organized Health Care Education/Training Program; Referring Provider Internal Medicine; Visit Provider Internal Medicine | DX: Z23 Encounter for immunization (principal) | CPT/HCPCS: 90471; 90686 ==

== ENCOUNTER → 2021-09-01 15:01 | Outpatient (CLI) | payer OTHER, SELFPAY ==
--- NOTE | 2021-09-01 15:02 | DI.MG.S_ITS ---
BILATERAL DIGITAL SCREENING MAMMOGRAM 3D/2D WITH CAD: 09/01/2021 CLINICAL: Routine screening. Comparison is made to exams dated: 08/14/2019 mammogram - [facility], 04/23/2018 mammogram, and 03/01/2017 mammogram - [facility]. There are scattered fibroglandular elements in both breasts. Current study was also evaluated with a Computer Aided Detection (CAD) system. No significant masses, calcifications, or other findings are seen in either breast. There has been no significant interval change. IMPRESSION: NEGATIVE There is no mammographic evidence of malignancy. A 1 year screening mammogram is recommended. This exam was interpreted at Station ID: [id number]. NOTE: For mammograms, a report in lay terms will be sent to the patient. Approximately 15% of breast malignancies will not be visualized mammographically. In the management of a palpable breast mass, a negative mammogram must not discourage biopsy of a clinically suspicious lesion. Electronically Signed By: Phan Pelayo M.D., jr/antonino:09/01/2021 16:25:13 copy to: ROME JARVIS letter sent: Normal Exam ACR BI-RADS Category 1: Negative 3341F
== END ==
PROVIDERS: PCP Student in an Organized Health Care Education/Training Program; Referring Provider Student in an Organized Health Care Education/Training Program; Visit Provider Student in an Organized Health Care Education/Training Program
DX: Z12.31 Encounter for screening mammogram for malignant neoplasm of breast (principal)
CPT/HCPCS: 77063; 77067

== ENCOUNTER → 2021-10-21 10:18 | Outpatient (CLI) | payer OTHER, SELFPAY ==
[2021-10-21 11:06] LABS: Add Manual Diff / Slide Review NO; Basophils Absolute Auto 100 /uL (0-100); Basophils Percent Auto 0.8 % (0-2); Eosinophils Absolute Auto 200 /uL (0-450); Eosinophils Percent Auto 2.1 % (2-4); Hematocrit 42.4 % (36-46); Hemoglobin 14.5 g/dL (12.0-16.0); Lymphocytes Absolute Auto 2600 /uL (1100-4500); Lymphocytes Percent Auto 34.4 % (25-40); Mean Corpuscular HGB Conc 34.2 % (30-36); Mean Corpuscular Hemoglobin 26.9 PG (26-34); Mean Corpuscular Volume 78.5 fL (80-100); Monocytes Absolute Auto 600 /uL (0-900); Monocytes Percent Auto 7.4 % (3-14); Neutrophils Absolute Auto 4200 /uL (1500-7000); Neutrophils Percent Auto 55.3 % (50-75); Platelet Count 289 X10^3/uL (150-400); Red Cell Distribution Width 14.8 % (11.6-14.8); White Blood Cell Count 7.6 X10^3/uL (4.5-11.0)
[2021-10-21 11:17] LABS: Alanine Aminotransferase 18 IU/L (<35); Albumin 4.2 g/dL (3.5-5.0); Albumin Globulin Ratio 1.5 (1.0-2.8); Alkaline Phosphatase 112 U/L (38-126); Aspartate Aminotransferase 20 IU/L (14-36); BUN Creatinine Ratio 23.5 (6-22); Bilirubin Total 0.4 mg/dL (0.2-1.3); Blood Urea Nitrogen 23 mg/dL (7-17); Calcium 9.1 mg/dL (8.4-10.2); Carbon Dioxide 31 mmol/L (22-32); Chloride 100 mmol/L (98-107); Estimated Glomerular Filt Rate 59.1 mL/min (>60); Globulin 2.8 g/dL (1.7-4.1); Glucose 149 mg/dL (70-100); HEMOLYSIS < 15 (0-50); Potassium 3.7 mmol/L (3.4-5.1); Sodium 137 mmol/L (137-145)
== END ==
PROVIDERS: PCP Internal Medicine Rheumatology; Referring Provider Internal Medicine Rheumatology; Visit Provider Internal Medicine Rheumatology
DX: M06.09 Rheumatoid arthritis without rheumatoid factor, multiple sites (principal); Z79.899 Other long term (current) drug therapy
CPT/HCPCS: 36415; 80053; 85025

== ENCOUNTER 2021-11-23 07:30 | Outpatient (RCR) | payer OTHER, SELFPAY ==
--- NOTE | 2021-10-26 16:40 | PT.OPPOC ---
Physical, Occupational & Speech Therapy At [facility] Current Diagnoses Other synovitis and tenosynovitis, unspecified shoulder (10/26/21) Abnormal posture (10/26/21) Weakness (10/26/21) Visit Care Team Role Provider Type ALEKSANDR Rocha Attending Provider Non-Staff Family Provider Primary Care Provider Referring Provider Specialty: Family Practice Address: [address] [place] [address], [id number] Email: Plan Of Care PT-OP-T Assessment and Plan Start: 10/26/21 07:58 Freq: Status: Active Protocol: Document 10/26/21 12:58 [facility] (Rec: 10/26/21 13:49 [facility] [id number]) Physical Therapy Assessment Rehab Potential Rehabilitation Potential Good Evaluation Complexity Number of Personal Factors/Comorbidities 3 or More Number of Body Systems Impaired 4 or More Clinical Presentation at Evaluation Evolving Impairments Impairments Activity Tolerance,Functional Activities,Functional Mobility ,Pain,Posture,ROM,Soft Tissue Mobility,Strength Goals activities Short Term Goal (STG) pt will be able to dress and bath w/o inc shoulder pain. STG Duration 11/23/21 Nursing Home Goal (LTG) Pt will be able to all typical rec activities including carrying heavy pack, kayaking and playing w/kids in her life w/o inc pain. LTG Duration 12/24/21 strength Short Term Goal (STG) Pt will be indep w/HEP STG Duration 11/23/21 Nursing Home Goal (LTG) Pt will improve LUE strength to at least 4+/5 into all planes and EFT to at least 3/5 to show improved shoulder stability to allow return to rec activities. LTG Duration 12/24/21 ROM Short Term Goal (STG) pt will have full cervical ROM and improve L flex and abd to at least 130 deg to improve functional ability. STG Duration 11/25/21 Nursing Home Goal (LTG) Pt will have full L shoulder ROM w/o pain in order to return to typical ADLs and rec activities w/o pain LTG Duration 12/24/21 quick dash Impairment 59.1 Short Term Goal (STG) pt will improve quick dash score to no higher than 39 to show improved functional ability. STG Duration 11/23/21 Nursing Home Goal (LTG) pt will improve quick dash score to no higher than 9 to show improved functional ability. LTG Duration 12/24/21 Assessment Summary Assessment pt presents w/L shoulder pain which is reoccuring from pt having this same pain last summer that went away on it's own. She had s/s of impingement of supraspinatus tendon and median and radial n tension w/clear UE neural symptoms. She has fwd rounded posture and impaired glenohumeral mechanics which likely contributes to this pain. She is limited in her strength and ROM into all planes but especailly behind her head or when rotations were combined w/add. She is typically very active and enjoys hiking, kayaking, and being active w/grandkids and neice and nephew. She is unable to do ADLs well d/t pain and has been limited w/ her recreational activities. She would benefit from skilled PT to work on these deficits. Physical Therapy Plan Frequency and Duration Frequency of Treatment 1-2x/week Duration of Treatment 2 months Plan of Care Start Date 10/26/21 Plan of Care End Date 12/24/21 Therapeutic Interventions Therapeutic Interventions Aquatic Therapy,Home Exercise Program,Joint Mobilizations, Manual Therapy,Neuromuscular Re-education,Patient/Caregiver Education,Self-Care/Home Management,Soft Tissue Mobilization,Taping, Therapeutic Activities, Therapeutic Exercises Modalities Cold Pack/Ice Massage,Electric Stimulation,Hot Packs, Infrared Therapy,Iontophoresis ,Ultrasound Next Visit Focus/Plan Next Note Type Treatment Note Next Visit Plan train cervical & scap retraction, if able add tband for strength w/retraction, wall posture, STM to cervical & thoracic/shoulder region Plan of Care Dates Plan of Care Start Date 10/26/21 Plan of Care End Date 12/24/21 Electronically Signed by: Princess Simon, PT 10/28/21 1640 Please Sign and Return: I have reviewed this Plan of Care and certify that the skilled therapy services above are required to meet the patient?s needs. Physician Signature Date Printed Name and Credentials Clinical Instructor Signature Printed Name and Credentials
--- NOTE | 2021-10-26 16:40 | PT.OIE ---
Current Diagnoses Other synovitis and tenosynovitis, unspecified shoulder (10/26/21) Abnormal posture (10/26/21) Weakness (10/26/21) Past Medical History (This Medical Record has been edited. Action required.) Anemia (~1989) Anesthesia complication Ankle fracture, left (~2013) Arthritis (~2000) Colon polyps (~2004) Diverticulitis (~2004) Endometriosis (~1979) Excessive daytime sleepiness H/O thyroidectomy (~2000) History of abnormal cervical Pap smear (~2014) History of chicken pox (~1976) History of partial colectomy (~2013) History of sleeve gastrectomy (~2016) HPV in female (~2014) Hyperlipidemia (~2017) Insomnia Thyroid cancer (~2000) Past Surgical History (This Medical Record has been edited. Action required.) H/O thyroidectomy (~2000) H/O: hysterectomy (~2004) History of partial colectomy (~2013) History of sleeve gastrectomy (~2016) Visit Care Team Role Provider Type ALEKSANDR Rocha Attending Provider Non-Staff Family Provider Primary Care Provider Referring Provider Specialty: [facility] Address: [address] [place] [address], [facility] Email: Physical Therapy Initial Evaluation PT-OP-A Visit Information Start: 10/26/21 07:58 Freq: Status: Active Protocol: Document 10/26/21 12:58 [facility] (Rec: 10/26/21 13:49 [facility] [id number]) Out-Patient Physical Therapy Visit Information Visit Information Visit Type Initial Evaluation Visit Start Time 13:01 Visit Stop Time 13:45 Total Visit Minutes 44 Visit Number 1 Number of INDUSTRIAL SALES MANAGER Visits 0 PT-OP-B Current Condition Start: 10/26/21 07:58 Freq: Status: Active Protocol: Document 10/26/21 12:58 [facility] (Rec: 10/26/21 13:49 [facility] [id number]) Current Condition History of Current Condition Onset Date July Current Complaints L shoulder pain History of Current Condition Pt reports L shoulder pain that started in July w/ unknown cause. If she really stresses it with activity, then it is painful fro a while , but if rests, then it is better. Pt had a bout of pain in L shoulder that lasted a few months in the summer but it eventually went away. She was hoping that would happen this time around too. Pt reports history of neck pain mostly w/computer use. Pt is achey often d/t RA all over. She saw her timber rider who changed her meds but didn't really evaluate her shoulder. Saw primary who evaluated her and determined no need for imaging. Pt reports recently inc pain at night where her shoulder wakes her up and makes it difficult to get comfortable. Prior Treatments and Tests none Treatment Goals Patient/Caregiver Goals kayak w/o pain, be able to lift arm up to wash hair & put on a bra/take off, stop hurting PT-OP-C Subjective Start: 10/26/21 07:58 Freq: Status: Active Protocol: Document 10/26/21 12:58 [facility] (Rec: 10/26/21 13:49 [facility] [id number]) Patient Questionnaires Quick Dash- Upper Extremity Quick Dash UE Score 59.1 OP-PT Pain Assessment Location L shoulder Pain Location Details L deep in joint Scale Used 2/10 at rest, 10/10 worst Description Aching,Burning,Sharp,With Movement Frequency Constant Pain Duration 30 sec subside from 10 to about 5 and will go to 2 if rests Radiating Location L cervical & upper thoracic Variations/Patterns pain/numbness/tingling post arm to 4&5 digits Pain Aggravating Factors ADL's,Walking,Lifting Other Pain Aggravating Factors overhead,put on bra,gabby, reach fwd/across, twisting,kayak, arm hanging Pain Alleviating Factors Cold,Heat Other Pain Alleviating Factors voltaren(elbow),tylenol PT-OP-F Manual Assessment Start: 10/26/21 07:58 Freq: Status: Active Protocol: Document 10/26/21 12:58 [facility] (Rec: 10/26/21 13:49 [facility] [id number]) Manual Assessments Soft Tissue Assessment Soft Tissue Mobility Assessment UT, LS, scalenes, SCM, SO,pec & post scap very tight and tender PT-OP-J Posture/Palpation/Skin Start: 10/26/21 07:58 Freq: Status: Active Protocol: Document 10/26/21 12:58 [facility] (Rec: 10/26/21 13:49 [facility] [id number]) Posture Evaluation Baljinder Postural Classification System Elbow Flexion Test 1 PT-OP-K Range of Motion Start: 10/26/21 07:58 Freq: Status: Active Protocol: Document 10/26/21 12:58 [facility] (Rec: 10/26/21 13:49 [facility] [id number]) Cervical Spine Range of Motion Cervical Spine Active Degrees Flexion 45 Extension 52 Rotation Left 40 Rotation Right 42 Lateral Flexion Left 20 Lateral Flexion Right 21 Comments tightness L side w/B SB, stiffness w/rot on L side, pain w/flex Shoulder Goniometric Range of Motion Shoulder Right Active Testing Position Standing Flexion 172 Extension 50 Abduction 165 External Rotation at 90 degrees 90 Abduction External Rotation at 0 degrees Abduction 54 Internal Rotation Behind Back (text) T6 Left Active Testing Position Standing Flexion 111 Extension 36 Abduction 94 External Rotation at 0 degrees Abduction 39 Internal Rotation Behind Back (text) L glute Comments abd most painful, all others also painful PT-OP-L Special Tests Start: 10/26/21 07:58 Freq: Status: Active Protocol: Document 10/26/21 12:58 [facility] (Rec: 10/26/21 13:49 [facility] [id number]) Special Tests Cervical Spine Special Tests Vertebral Artery Test Results neg Spurling's Test Test Results neg Alar Ligament Test Results neg Shoulder Special Tests Sulcus Test Results neg Yergason's Biceps Test Results neg L Speed's Biceps Test Results neg L Simpson Test Test Results mildpain Neer Impingement Test Results positive L Vigil Fadi Impingement Test Results positive L Empty Can Test Results positive L AC Joint Compression Test Results neg L Neural Special Tests- Upper Body Median Nerve Tension Test Results positive L Radial Nerve Tension Test Results postive L Ulnar Nerve Tension Test Results neg L PT-OP-M Strength Start: 10/26/21 07:58 Freq: Status: Active Protocol: Document 10/26/21 12:58 [facility] (Rec: 10/26/21 13:49 [facility] [id number]) Shoulder Strength Shoulder Manual Muscle Testing Right Flexion 4+ Good+ Extension 4+ Good+ Abduction (C5) 4+ Good+ External Rotation 5 Normal Internal Rotation 5 Normal Left Flexion 3+ Fair+ Extension 3+ Fair+ Abduction (C5) 3- Fair- External Rotation 4 Good Internal Rotation 4 Good Comments pain w/MMT PT-OP-Q Treatments Start: 10/26/21 07:58 Freq: Status: Active Protocol: Document 10/26/21 12:58 [facility] (Rec: 10/26/21 13:49 [facility] [id number]) Self-Care/Home Management Treatment Education Other Education edu re: cervical stretches to try including UT & LS stretches and only do to R side at this time as when she tilts to L she feels it in her L. edu on anatomy and that this is a pinching issue vs stretching of the actual muscles. Edu re: neural tension testing and areas that can cause pinching of the nerves including the neck. Edu re: impingement as she appears to have symptoms of this condition. PT-OP-T Assessment and Plan Start: 10/26/21 07:58 Freq: Status: Active Protocol: Document 10/26/21 12:58 [facility] (Rec: 10/26/21 13:49 [facility] [id number]) Physical Therapy Assessment Rehab Potential Rehabilitation Potential Good Evaluation Complexity Number of Personal Factors/Comorbidities 3 or More Number of Body Systems Impaired 4 or More Clinical Presentation at Evaluation Evolving Impairments Impairments Activity Tolerance,Functional Activities,Functional Mobility ,Pain,Posture,ROM,Soft Tissue Mobility,Strength Goals activities Short Term Goal (STG) pt will be able to dress and bath w/o inc shoulder pain. STG Duration 11/23/21 Longterm Goal (LTG) Pt will be able to all typical rec activities including carrying heavy pack, kayaking and playing w/kids in her life w/o inc pain. LTG Duration 12/24/21 strength Short Term Goal (STG) Pt will be indep w/HEP STG Duration 11/23/21 Longterm Goal (LTG) Pt will improve LUE strength to at least 4+/5 into all planes and EFT to at least 3/5 to show improved shoulder stability to allow return to rec activities. LTG Duration 12/24/21 ROM Short Term Goal (STG) pt will have full cervical ROM and improve L flex and abd to at least 130 deg to improve functional ability. STG Duration 11/25/21 Longterm Goal (LTG) Pt will have full L shoulder ROM w/o pain in order to return to typical ADLs and rec activities w/o pain LTG Duration 12/24/21 quick dash Impairment 59.1 Short Term Goal (STG) pt will improve quick dash score to no higher than 39 to show improved functional ability. STG Duration 11/23/21 Customer Service Officer Goal (LTG) pt will improve quick dash score to no higher than 9 to show improved functional ability. LTG Duration 12/24/21 Assessment Summary Assessment pt presents w/L shoulder pain which is reoccuring from pt having this same pain last summer that went away on it's own. She had s/s of impingement of supraspinatus tendon and median and radial n tension w/clear UE neural symptoms. She has fwd rounded posture and impaired glenohumeral mechanics which likely contributes to this pain. She is limited in her strength and ROM into all planes but especailly behind her head or when rotations were combined w/add. She is typically very active and enjoys hiking, kayaking, and being active w/grandkids and neice and nephew. She is unable to do ADLs well d/t pain and has been limited w/ her recreational activities. She would benefit from skilled PT to work on these deficits. Physical Therapy Plan Frequency and Duration Frequency of Treatment 1-2x/week Duration of Treatment 2 months Plan of Care Start Date 10/26/21 Plan of Care End Date 12/24/21 Therapeutic Interventions Therapeutic Interventions Aquatic Therapy,Home Exercise Program,Joint Mobilizations, Manual Therapy,Neuromuscular Re-education,Patient/Caregiver Education,Self-Care/Home Management,Soft Tissue Mobilization,Taping, Therapeutic Activities, Therapeutic Exercises Modalities Cold Pack/Ice Massage,Electric Stimulation,Hot Packs, Infrared Therapy,Iontophoresis ,Ultrasound Next Visit Focus/Plan Next Note Type Treatment Note Next Visit Plan train cervical & scap retraction, if able add tband for strength w/retraction, wall posture, STM to cervical & thoracic/shoulder region
--- NOTE | 2021-11-04 10:12 | PT.OTN ---
Current Diagnoses Other synovitis and tenosynovitis, unspecified shoulder (11/04/21) Abnormal posture (11/04/21) Weakness (11/04/21) Physical Therapy Treatment Note PT-OP-A Visit Information Start: 10/26/21 07:58 Freq: Status: Active Protocol: Document 11/04/21 08:10 [facility] (Rec: 11/04/21 10:12 [facility] [id number]) Out-Patient Physical Therapy Visit Information Visit Information Visit Type Treatment Note Visit Start Time 08:15 Visit Stop Time 09:00 Total Visit Minutes 45 Visit Number 2 Number of GARMENT PARTS CUTTER MACHINE Visits 0 PT-OP-B Current Condition Start: 10/26/21 07:58 Freq: Status: Active Protocol: Document 10/26/21 12:58 [facility] (Rec: 10/26/21 13:49 [facility] [id number]) Current Condition History of Current Condition Onset Date July Current Complaints L shoulder pain History of Current Condition Pt reports L shoulder pain that started in July w/ unknown cause. If she really stresses it with activity, then it is painful fro a while , but if rests, then it is better. Pt had a bout of pain in L shoulder that lasted a few months in the summer but it eventually went away. She was hoping that would happen this time around too. Pt reports history of neck pain mostly w/computer use. Pt is achey often d/t RA all over. She saw her phone counselor who changed her meds but didn't really evaluate her shoulder. Saw primary who evaluated her and determined no need for imaging. Pt reports recently inc pain at night where her shoulder wakes her up and makes it difficult to get comfortable. Prior Treatments and Tests none Treatment Goals Patient/Caregiver Goals kayak w/o pain, be able to lift arm up to wash hair & put on a bra/take off, stop hurting PT-OP-C Subjective Start: 10/26/21 07:58 Freq: Status: Active Protocol: Document 11/04/21 08:10 [facility] (Rec: 11/04/21 10:12 [facility] [id number]) OP-PT Subjective Patient Comments Patient Comments Pt reports she tried to avoid picking up her grandkids while there to avoid pain PT-OP-F Manual Assessment Start: 10/26/21 07:58 Freq: Status: Active Protocol: Document 10/26/21 12:58 [facility] (Rec: 10/26/21 13:49 [facility] [id number]) Manual Assessments Soft Tissue Assessment Soft Tissue Mobility Assessment UT, LS, scalenes, SCM, SO,pec & post scap very tight and tender PT-OP-J Posture/Palpation/Skin Start: 10/26/21 07:58 Freq: Status: Active Protocol: Document 10/26/21 12:58 [facility] (Rec: 10/26/21 13:49 [facility] [id number]) Posture Evaluation [facility] Postural Classification System Elbow Flexion Test 1 PT-OP-K Range of Motion Start: 10/26/21 07:58 Freq: Status: Active Protocol: Document 10/26/21 12:58 [facility] (Rec: 10/26/21 13:49 [facility] [id number]) Cervical Spine Range of Motion Cervical Spine Active Degrees Flexion 45 Extension 52 Rotation Left 40 Rotation Right 42 Lateral Flexion Left 20 Lateral Flexion Right 21 Comments tightness L side w/B SB, stiffness w/rot on L side, pain w/flex Shoulder Goniometric Range of Motion Shoulder Right Active Testing Position Standing Flexion 172 Extension 50 Abduction 165 External Rotation at 90 degrees 90 Abduction External Rotation at 0 degrees Abduction 54 Internal Rotation Behind Back (text) T6 Left Active Testing Position Standing Flexion 111 Extension 36 Abduction 94 External Rotation at 0 degrees Abduction 39 Internal Rotation Behind Back (text) L glute Comments abd most painful, all others also painful PT-OP-L Special Tests Start: 10/26/21 07:58 Freq: Status: Active Protocol: Document 10/26/21 12:58 [facility] (Rec: 10/26/21 13:49 [facility] [id number]) Special Tests Cervical Spine Special Tests Vertebral Artery Test Results neg Spurling's Test Test Results neg Alar Ligament Test Results neg Shoulder Special Tests Sulcus Test Results neg Yergason's Biceps Test Results neg L Speed's Biceps Test Results neg L Webster Test Test Results mildpain Neer Impingement Test Results positive L Vigil Fadi Impingement Test Results positive L Empty Can Test Results positive L AC Joint Compression Test Results neg L Neural Special Tests- Upper Body Median Nerve Tension Test Results positive L Radial Nerve Tension Test Results postive L Ulnar Nerve Tension Test Results neg L PT-OP-M Strength Start: 10/26/21 07:58 Freq: Status: Active Protocol: Document 10/26/21 12:58 [facility] (Rec: 10/26/21 13:49 [facility] [id number]) Shoulder Strength Shoulder Manual Muscle Testing Right Flexion 4+ Good+ Extension 4+ Good+ Abduction (C5) 4+ Good+ External Rotation 5 Normal Internal Rotation 5 Normal Left Flexion 3+ Fair+ Extension 3+ Fair+ Abduction (C5) 3- Fair- External Rotation 4 Good Internal Rotation 4 Good Comments pain w/MMT PT-OP-Q Treatments Start: 10/26/21 07:58 Freq: Status: Active Protocol: Document 11/04/21 08:10 [facility] (Rec: 11/04/21 10:12 [facility] [id number]) Therapeutic Exercises Supine Exercises tbar Supine Exercise Name 1. chest press to flex 2. ER Side left Equipment Used cane AAROM Reps/Minutes 15 ea Sitting Exercises pulleys Sitting Exercise Name 1. flex, scaption, abd Side bilateral Reps/Minutes 10 ea rotation Sitting Exercise Name thoracic Side bilateral retraction Sitting Exercise Name 1. scap retract/depress 2. cervical retraction Side bilateral Reps/Minutes 10 Manual Therapy Treatment Soft Tissue Mobilization pec Body Location L Mobilization Type Rolling Intensity/Depth Moderate Body Position Hooklying scap Body Location L med border of scap, rhomboids, ES Mobilization Type Rolling,Strumming Intensity/Depth Moderate Body Position Sidelying scalenes/SCM Body Location L Mobilization Type Rolling Intensity/Depth Moderate Body Position Supine UT/LS Body Location L Mobilization Type Rolling,Strumming Intensity/Depth Moderate Body Position Supine PT-OP-T Assessment and Plan Start: 10/26/21 07:58 Freq: Status: Active Protocol: Document 11/04/21 08:10 [facility] (Rec: 11/04/21 10:12 [facility] [id number]) Physical Therapy Assessment Goals activities Short Term Goal (STG) pt will be able to dress and bath w/o inc shoulder pain. STG Duration 11/23/21 Halfway Goal (LTG) Pt will be able to all typical rec activities including carrying heavy pack, kayaking and playing w/kids in her life w/o inc pain. LTG Duration 12/24/21 strength Short Term Goal (STG) Pt will be indep w/HEP STG Duration 11/23/21 Rn Advanced Goal (LTG) Pt will improve LUE strength to at least 4+/5 into all planes and EFT to at least 3/5 to show improved shoulder stability to allow return to rec activities. LTG Duration 12/24/21 ROM Short Term Goal (STG) pt will have full cervical ROM and improve L flex and abd to at least 130 deg to improve functional ability. STG Duration 11/25/21 Halfway Goal (LTG) Pt will have full L shoulder ROM w/o pain in order to return to typical ADLs and rec activities w/o pain LTG Duration 12/24/21 quick dash Impairment 59.1 Short Term Goal (STG) pt will improve quick dash score to no higher than 39 to show improved functional ability. STG Duration 11/23/21 Rn Advanced Goal (LTG) pt will improve quick dash score to no higher than 9 to show improved functional ability. LTG Duration 12/24/21 Assessment Summary Assessment Pt required significant encouragement for staying in comfortable range and avoiding painful range as the goal of exercises is to gently stretch and allow the shoulder to move and do not want to irritate the joint.S he had signficiant tightness in scap mm and along ant ribs/pecs. Physical Therapy Plan Frequency and Duration Frequency of Treatment 1-2x/week Duration of Treatment 2 months Plan of Care Start Date 10/26/21 Plan of Care End Date 12/24/21 Next Visit Focus/Plan Next Note Type Treatment Note Next Visit Plan review exercises, work on soft tissue for cervical/thoracic and shoulder region
--- NOTE | 2021-11-08 18:33 | PT.OTN ---
Current Diagnoses Other synovitis and tenosynovitis, unspecified shoulder (11/08/21) Abnormal posture (11/08/21) Weakness (11/08/21) Physical Therapy Treatment Note PT-OP-A Visit Information Start: 10/26/21 07:58 Freq: Status: Active Protocol: Document 11/08/21 14:28 [facility] (Rec: 11/08/21 18:33 [facility] [id number]) Out-Patient Physical Therapy Visit Information Visit Information Visit Type Treatment Note Visit Start Time 14:32 Visit Stop Time 15:16 Total Visit Minutes 44 Visit Number 3 Number of MARKETING CONTENT MANAGER Visits 0 PT-OP-B Current Condition Start: 10/26/21 07:58 Freq: Status: Active Protocol: Document 10/26/21 12:58 [facility] (Rec: 10/26/21 13:49 [facility] [id number]) Current Condition History of Current Condition Onset Date July Current Complaints L shoulder pain History of Current Condition Pt reports L shoulder pain that started in July w/ unknown cause. If she really stresses it with activity, then it is painful fro a while , but if rests, then it is better. Pt had a bout of pain in L shoulder that lasted a few months in the summer but it eventually went away. She was hoping that would happen this time around too. Pt reports history of neck pain mostly w/computer use. Pt is achey often d/t RA all over. She saw her end trimmer who changed her meds but didn't really evaluate her shoulder. Saw primary who evaluated her and determined no need for imaging. Pt reports recently inc pain at night where her shoulder wakes her up and makes it difficult to get comfortable. Prior Treatments and Tests none Treatment Goals Patient/Caregiver Goals kayak w/o pain, be able to lift arm up to wash hair & put on a bra/take off, stop hurting PT-OP-C Subjective Start: 10/26/21 07:58 Freq: Status: Active Protocol: Document 11/08/21 14:28 [facility] (Rec: 11/08/21 18:33 [facility] [id number]) OP-PT Subjective Patient Comments Patient Comments pt reports she is achey from doing the exercises daily, but does feel better since IE. Notes soreness for the rest of the day after last session. Patient Reported Progress Improving PT-OP-F Manual Assessment Start: 10/26/21 07:58 Freq: Status: Active Protocol: Document 10/26/21 12:58 [facility] (Rec: 10/26/21 13:49 [facility] [id number]) Manual Assessments Soft Tissue Assessment Soft Tissue Mobility Assessment UT, LS, scalenes, SCM, SO,pec & post scap very tight and tender PT-OP-J Posture/Palpation/Skin Start: 10/26/21 07:58 Freq: Status: Active Protocol: Document 10/26/21 12:58 [facility] (Rec: 10/26/21 13:49 [facility] [id number]) Posture Evaluation [facility] Postural Classification System Elbow Flexion Test 1 PT-OP-K Range of Motion Start: 10/26/21 07:58 Freq: Status: Active Protocol: Document 10/26/21 12:58 [facility] (Rec: 10/26/21 13:49 [facility] [id number]) Cervical Spine Range of Motion Cervical Spine Active Degrees Flexion 45 Extension 52 Rotation Left 40 Rotation Right 42 Lateral Flexion Left 20 Lateral Flexion Right 21 Comments tightness L side w/B SB, stiffness w/rot on L side, pain w/flex Shoulder Goniometric Range of Motion Shoulder Right Active Testing Position Standing Flexion 172 Extension 50 Abduction 165 External Rotation at 90 degrees 90 Abduction External Rotation at 0 degrees Abduction 54 Internal Rotation Behind Back (text) T6 Left Active Testing Position Standing Flexion 111 Extension 36 Abduction 94 External Rotation at 0 degrees Abduction 39 Internal Rotation Behind Back (text) L glute Comments abd most painful, all others also painful PT-OP-L Special Tests Start: 10/26/21 07:58 Freq: Status: Active Protocol: Document 10/26/21 12:58 [facility] (Rec: 10/26/21 13:49 [facility] [id number]) Special Tests Cervical Spine Special Tests Vertebral Artery Test Results neg Spurling's Test Test Results neg Alar Ligament Test Results neg Shoulder Special Tests Sulcus Test Results neg Yergason's Biceps Test Results neg L Speed's Biceps Test Results neg L [place] Test Test Results mildpain Neer Impingement Test Results positive L Vigil Fadi Impingement Test Results positive L Empty Can Test Results positive L AC Joint Compression Test Results neg L Neural Special Tests- Upper Body Median Nerve Tension Test Results positive L Radial Nerve Tension Test Results postive L Ulnar Nerve Tension Test Results neg L PT-OP-M Strength Start: 10/26/21 07:58 Freq: Status: Active Protocol: Document 10/26/21 12:58 [facility] (Rec: 10/26/21 13:49 [facility] [id number]) Shoulder Strength Shoulder Manual Muscle Testing Right Flexion 4+ Good+ Extension 4+ Good+ Abduction (C5) 4+ Good+ External Rotation 5 Normal Internal Rotation 5 Normal Left Flexion 3+ Fair+ Extension 3+ Fair+ Abduction (C5) 3- Fair- External Rotation 4 Good Internal Rotation 4 Good Comments pain w/MMT PT-OP-Q Treatments Start: 10/26/21 07:58 Freq: Status: Active Protocol: Document 11/08/21 14:28 [facility] (Rec: 11/08/21 18:33 [facility] [id number]) Therapeutic Exercises Supine Exercises tbar Supine Exercise Name 1. chest press to flex 2. ER Side left Equipment Used cane AAROM Reps/Minutes 15 ea Sitting Exercises pulleys Sitting Exercise Name 1. flex, scaption, abd Side bilateral Reps/Minutes 10 ea rotation Sitting Exercise Name thoracic Side bilateral Reps/Minutes 20 sec retraction Sitting Exercise Name 1. scap retract/depress 2. cervical retraction Side bilateral Reps/Minutes 5 ea Standing Exercises pendulum Standing Exercise Name relax arm down w/gentle side<> side rocking Side left Reps/Minutes 1 min IR Standing Exercise Name AAROm w/bar Side left Reps/Minutes 15 walk away Standing Exercise Name into ayad pose standing Side bilateral Reps/Minutes 30 sec Manual Therapy Treatment Soft Tissue Mobilization pec Body Location L Mobilization Type Rolling Intensity/Depth Moderate Body Position Hooklying scap Body Location L med border of scap, rhomboids, ES Mobilization Type Rolling,Strumming Intensity/Depth Moderate Body Position Sidelying scalenes/SCM Body Location L Mobilization Type Rolling Intensity/Depth Moderate Body Position Supine UT/LS Body Location L Mobilization Type Rolling,Strumming Intensity/Depth Moderate Body Position Supine Joint Mobilizations scap Joint med glide & med/lat tipping Direction II PT-OP-T Assessment and Plan Start: 10/26/21 07:58 Freq: Status: Active Protocol: Document 11/08/21 14:28 [facility] (Rec: 11/08/21 18:33 [facility] [id number]) Physical Therapy Assessment Goals activities Short Term Goal (STG) pt will be able to dress and bath w/o inc shoulder pain. STG Duration 11/23/21 Skilled Nursing Goal (LTG) Pt will be able to all typical rec activities including carrying heavy pack, kayaking and playing w/kids in her life w/o inc pain. LTG Duration 12/24/21 strength Short Term Goal (STG) Pt will be indep w/HEP STG Duration 11/23/21 Skilled Nursing Goal (LTG) Pt will improve LUE strength to at least 4+/5 into all planes and EFT to at least 3/5 to show improved shoulder stability to allow return to rec activities. LTG Duration 12/24/21 ROM Short Term Goal (STG) pt will have full cervical ROM and improve L flex and abd to at least 130 deg to improve functional ability. STG Duration 11/25/21 Skilled Nursing Goal (LTG) Pt will have full L shoulder ROM w/o pain in order to return to typical ADLs and rec activities w/o pain LTG Duration 12/24/21 quick dash Impairment 59.1 Short Term Goal (STG) pt will improve quick dash score to no higher than 39 to show improved functional ability. STG Duration 11/23/21 Automobile Assembler Goal (LTG) pt will improve quick dash score to no higher than 9 to show improved functional ability. LTG Duration 12/24/21 Assessment Summary Assessment pt rodríguez dimproved ability to get into post depression w/manual but is still very tender to palpation. She was sore when she stood up so was taught the pendulum to relax arm. Encouraged to ice after PT and after exercises at home. Physical Therapy Plan Frequency and Duration Frequency of Treatment 1-2x/week Duration of Treatment 2 months Plan of Care Start Date 10/26/21 Plan of Care End Date 12/24/21 Next Visit Focus/Plan Next Note Type Treatment Note Next Visit Plan cont to progress AAROm, try UBE, manual for cervical and thoracic, try grade 1 distraciton & post glide L GHJ
--- NOTE | 2021-11-10 18:17 | PT.OTN ---
Current Diagnoses Other synovitis and tenosynovitis, unspecified shoulder (11/10/21) Abnormal posture (11/10/21) Weakness (11/10/21) Physical Therapy Treatment Note PT-OP-A Visit Information Start: 10/26/21 07:58 Freq: Status: Active Protocol: Document 11/10/21 13:02 [facility] (Rec: 11/10/21 18:16 [facility] [id number]) Out-Patient Physical Therapy Visit Information Visit Information Visit Type Treatment Note Visit Start Time 13:02 Visit Stop Time 13:55 Total Visit Minutes 53 Visit Number 4 Number of SURVEY OPERATIONS DIRECTOR Visits 0 PT-OP-B Current Condition Start: 10/26/21 07:58 Freq: Status: Active Protocol: Document 10/26/21 12:58 [facility] (Rec: 10/26/21 13:49 [facility] [id number]) Current Condition History of Current Condition Onset Date July Current Complaints L shoulder pain History of Current Condition Pt reports L shoulder pain that started in July w/ unknown cause. If she really stresses it with activity, then it is painful fro a while , but if rests, then it is better. Pt had a bout of pain in L shoulder that lasted a few months in the summer but it eventually went away. She was hoping that would happen this time around too. Pt reports history of neck pain mostly w/computer use. Pt is achey often d/t RA all over. She saw her financial management who changed her meds but didn't really evaluate her shoulder. Saw primary who evaluated her and determined no need for imaging. Pt reports recently inc pain at night where her shoulder wakes her up and makes it difficult to get comfortable. Prior Treatments and Tests none Treatment Goals Patient/Caregiver Goals kayak w/o pain, be able to lift arm up to wash hair & put on a bra/take off, stop hurting PT-OP-C Subjective Start: 10/26/21 07:58 Freq: Status: Active Protocol: Document 11/10/21 13:02 [facility] (Rec: 11/10/21 18:16 [facility] [id number]) OP-PT Subjective Patient Comments Patient Comments Pt was sore after monday and was sore from massage yesterday. She did ice after both. She didn't do exercises d/t this. PT-OP-F Manual Assessment Start: 10/26/21 07:58 Freq: Status: Active Protocol: Document 10/26/21 12:58 [facility] (Rec: 10/26/21 13:49 [facility] [id number]) Manual Assessments Soft Tissue Assessment Soft Tissue Mobility Assessment UT, LS, scalenes, SCM, SO,pec & post scap very tight and tender PT-OP-J Posture/Palpation/Skin Start: 10/26/21 07:58 Freq: Status: Active Protocol: Document 10/26/21 12:58 [facility] (Rec: 10/26/21 13:49 [facility] [id number]) Posture Evaluation [facility] Postural Classification System Elbow Flexion Test 1 PT-OP-K Range of Motion Start: 10/26/21 07:58 Freq: Status: Active Protocol: Document 10/26/21 12:58 [facility] (Rec: 10/26/21 13:49 [facility] [id number]) Cervical Spine Range of Motion Cervical Spine Active Degrees Flexion 45 Extension 52 Rotation Left 40 Rotation Right 42 Lateral Flexion Left 20 Lateral Flexion Right 21 Comments tightness L side w/B SB, stiffness w/rot on L side, pain w/flex Shoulder Goniometric Range of Motion Shoulder Right Active Testing Position Standing Flexion 172 Extension 50 Abduction 165 External Rotation at 90 degrees 90 Abduction External Rotation at 0 degrees Abduction 54 Internal Rotation Behind Back (text) T6 Left Active Testing Position Standing Flexion 111 Extension 36 Abduction 94 External Rotation at 0 degrees Abduction 39 Internal Rotation Behind Back (text) L glute Comments abd most painful, all others also painful PT-OP-L Special Tests Start: 10/26/21 07:58 Freq: Status: Active Protocol: Document 10/26/21 12:58 [facility] (Rec: 10/26/21 13:49 [facility] [id number]) Special Tests Cervical Spine Special Tests Vertebral Artery Test Results neg Spurling's Test Test Results neg Alar Ligament Test Results neg Shoulder Special Tests Sulcus Test Results neg Yergason's Biceps Test Results neg L Speed's Biceps Test Results neg L [place] Test Test Results mildpain Neer Impingement Test Results positive L Vigil Fadi Impingement Test Results positive L Empty Can Test Results positive L AC Joint Compression Test Results neg L Neural Special Tests- Upper Body Median Nerve Tension Test Results positive L Radial Nerve Tension Test Results postive L Ulnar Nerve Tension Test Results neg L PT-OP-M Strength Start: 10/26/21 07:58 Freq: Status: Active Protocol: Document 10/26/21 12:58 [facility] (Rec: 10/26/21 13:49 [facility] [id number]) Shoulder Strength Shoulder Manual Muscle Testing Right Flexion 4+ Good+ Extension 4+ Good+ Abduction (C5) 4+ Good+ External Rotation 5 Normal Internal Rotation 5 Normal Left Flexion 3+ Fair+ Extension 3+ Fair+ Abduction (C5) 3- Fair- External Rotation 4 Good Internal Rotation 4 Good Comments pain w/MMT PT-OP-Q Treatments Start: 10/26/21 07:58 Freq: Status: Active Protocol: Document 11/10/21 13:02 [facility] (Rec: 11/10/21 18:16 [facility] [id number]) Cardio Equipment Upper Body Ergometer (UBE) Duration (Minutes) 4 Seat Position 11 Height 3.5 Other fwd/back Therapeutic Exercises Standing Exercises pec stretch Standing Exercise Name arms ext in door Side bilateral Reps/Minutes 30 sec Comments time taken to dec back pain Ext Standing Exercise Name 1.tbar AAROM 2. ext to side lvl1 tband Side left Reps/Minutes 15 ea IR Standing Exercise Name AAROm w/bar Side left Reps/Minutes 15 Manual Therapy Treatment Soft Tissue Mobilization biceps Body Location L Mobilization Type Rolling,Strumming Intensity/Depth Superficial Body Position Hooklying Comments w/AAROM elbow flex/ext pec Body Location L Mobilization Type Rolling Intensity/Depth Superficial Body Position Hooklying scalenes/SCM Body Location L Mobilization Type Rolling Intensity/Depth Superficial Body Position Supine Joint Mobilizations GH Joint L Direction distraction, inf, post Grade II Comments occilating PT-OP-R Modalities Start: 10/26/21 07:58 Freq: Status: Active Protocol: Document 11/10/21 13:02 [facility] (Rec: 11/10/21 18:17 [facility] [id number]) Electric Stimulation Electric Stimulation Interferential Current (IFC) Body Location L shoulder Duration (Minutes) 10 Intensity 7 Combined With Heat/Cold Cold Pack PT-OP-T Assessment and Plan Start: 10/26/21 07:58 Freq: Status: Active Protocol: Document 11/10/21 13:02 [facility] (Rec: 11/10/21 18:16 [facility] [id number]) Physical Therapy Assessment Goals activities Short Term Goal (STG) pt will be able to dress and bath w/o inc shoulder pain. STG Duration 11/23/21 Floorworker Goal (LTG) Pt will be able to all typical rec activities including carrying heavy pack, kayaking and playing w/kids in her life w/o inc pain. LTG Duration 12/24/21 strength Short Term Goal (STG) Pt will be indep w/HEP STG Duration 11/23/21 Floorworker Goal (LTG) Pt will improve LUE strength to at least 4+/5 into all planes and EFT to at least 3/5 to show improved shoulder stability to allow return to rec activities. LTG Duration 12/24/21 ROM Short Term Goal (STG) pt will have full cervical ROM and improve L flex and abd to at least 130 deg to improve functional ability. STG Duration 11/25/21 Floorworker Goal (LTG) Pt will have full L shoulder ROM w/o pain in order to return to typical ADLs and rec activities w/o pain LTG Duration 12/24/21 quick dash Impairment 59.1 Short Term Goal (STG) pt will improve quick dash score to no higher than 39 to show improved functional ability. STG Duration 11/23/21 Floorworker Goal (LTG) pt will improve quick dash score to no higher than 9 to show improved functional ability. LTG Duration 12/24/21 Assessment Summary Assessment Pt did well with progression of exercises and ended pt on stima nd ice today to try to help dec pain that she experiences after sessions. She does not have inc pain after exercises so may be able to progress further. Physical Therapy Plan Frequency and Duration Frequency of Treatment 1-2x/week Duration of Treatment 2 months Plan of Care Start Date 10/26/21 Plan of Care End Date 12/24/21 Next Visit Focus/Plan Next Note Type Treatment Note Next Visit Plan Cont UBE, review resisted ext, assess response to gentle joint mobs
--- NOTE | 2021-11-15 09:48 | PT.OTN ---
Current Diagnoses Other synovitis and tenosynovitis, unspecified shoulder (11/15/21) Abnormal posture (11/15/21) Weakness (11/15/21) Physical Therapy Treatment Note PT-OP-A Visit Information Start: 10/26/21 07:58 Freq: Status: Active Protocol: Document 11/15/21 08:14 [facility] (Rec: 11/15/21 09:47 [facility] [id number]) Out-Patient Physical Therapy Visit Information Visit Information Visit Type Treatment Note Visit Start Time 08:18 Visit Stop Time 09:15 Total Visit Minutes 57 Visit Number 5 Number of [employer] SPECIALIST Visits 0 PT-OP-B Current Condition Start: 10/26/21 07:58 Freq: Status: Active Protocol: Document 10/26/21 12:58 [facility] (Rec: 10/26/21 13:49 [facility] [id number]) Current Condition History of Current Condition Onset Date July Current Complaints L shoulder pain History of Current Condition Pt reports L shoulder pain that started in July w/ unknown cause. If she really stresses it with activity, then it is painful fro a while , but if rests, then it is better. Pt had a bout of pain in L shoulder that lasted a few months in the summer but it eventually went away. She was hoping that would happen this time around too. Pt reports history of neck pain mostly w/computer use. Pt is achey often d/t RA all over. She saw her airline radio operator who changed her meds but didn't really evaluate her shoulder. Saw primary who evaluated her and determined no need for imaging. Pt reports recently inc pain at night where her shoulder wakes her up and makes it difficult to get comfortable. Prior Treatments and Tests none Treatment Goals Patient/Caregiver Goals kayak w/o pain, be able to lift arm up to wash hair & put on a bra/take off, stop hurting PT-OP-C Subjective Start: 10/26/21 07:58 Freq: Status: Active Protocol: Document 11/15/21 08:14 [facility] (Rec: 11/15/21 09:47 [facility] [id number]) OP-PT Subjective Patient Comments Patient Comments Pt reports significant improvement in ROM after last session. Reports she slept in her car this weekend and kayaked and she is taking OTC meds for pain but still has good ROM from last week. PT-OP-F Manual Assessment Start: 10/26/21 07:58 Freq: Status: Active Protocol: Document 10/26/21 12:58 [facility] (Rec: 10/26/21 13:49 [facility] [id number]) Manual Assessments Soft Tissue Assessment Soft Tissue Mobility Assessment UT, LS, scalenes, SCM, SO,pec & post scap very tight and tender PT-OP-J Posture/Palpation/Skin Start: 10/26/21 07:58 Freq: Status: Active Protocol: Document 10/26/21 12:58 [facility] (Rec: 10/26/21 13:49 [facility] [id number]) Posture Evaluation [facility] Postural Classification System Elbow Flexion Test 1 PT-OP-K Range of Motion Start: 10/26/21 07:58 Freq: Status: Active Protocol: Document 10/26/21 12:58 [facility] (Rec: 10/26/21 13:49 [facility] [id number]) Cervical Spine Range of Motion Cervical Spine Active Degrees Flexion 45 Extension 52 Rotation Left 40 Rotation Right 42 Lateral Flexion Left 20 Lateral Flexion Right 21 Comments tightness L side w/B SB, stiffness w/rot on L side, pain w/flex Shoulder Goniometric Range of Motion Shoulder Right Active Testing Position Standing Flexion 172 Extension 50 Abduction 165 External Rotation at 90 degrees 90 Abduction External Rotation at 0 degrees Abduction 54 Internal Rotation Behind Back (text) T6 Left Active Testing Position Standing Flexion 111 Extension 36 Abduction 94 External Rotation at 0 degrees Abduction 39 Internal Rotation Behind Back (text) L glute Comments abd most painful, all others also painful PT-OP-L Special Tests Start: 10/26/21 07:58 Freq: Status: Active Protocol: Document 10/26/21 12:58 [facility] (Rec: 10/26/21 13:49 [facility] [id number]) Special Tests Cervical Spine Special Tests Vertebral Artery Test Results neg Spurling's Test Test Results neg Alar Ligament Test Results neg Shoulder Special Tests Sulcus Test Results neg Yergason's Biceps Test Results neg L Speed's Biceps Test Results neg L Ralls Test Test Results mildpain Neer Impingement Test Results positive L Vigil Fadi Impingement Test Results positive L Empty Can Test Results positive L AC Joint Compression Test Results neg L Neural Special Tests- Upper Body Median Nerve Tension Test Results positive L Radial Nerve Tension Test Results postive L Ulnar Nerve Tension Test Results neg L PT-OP-M Strength Start: 10/26/21 07:58 Freq: Status: Active Protocol: Document 10/26/21 12:58 [facility] (Rec: 10/26/21 13:49 [facility] [id number]) Shoulder Strength Shoulder Manual Muscle Testing Right Flexion 4+ Good+ Extension 4+ Good+ Abduction (C5) 4+ Good+ External Rotation 5 Normal Internal Rotation 5 Normal Left Flexion 3+ Fair+ Extension 3+ Fair+ Abduction (C5) 3- Fair- External Rotation 4 Good Internal Rotation 4 Good Comments pain w/MMT PT-OP-Q Treatments Start: 10/26/21 07:58 Freq: Status: Active Protocol: Document 11/15/21 08:14 [facility] (Rec: 11/15/21 09:47 [facility] [id number]) Therapeutic Exercises Sitting Exercises pulleys Sitting Exercise Name 1. flex, scaption, abd, IR behind back Side bilateral Reps/Minutes 10 ea Standing Exercises ER Side left Equipment Used Lvl 1 Reps/Minutes 10 pec stretch Standing Exercise Name arms ext in door Side bilateral Reps/Minutes 30 sec Comments focus on neutral spine Ext Standing Exercise Name resisted ext to side Side left Equipment Used lvl 2 Reps/Minutes 15 ea Manual Therapy Treatment Soft Tissue Mobilization biceps Body Location L Mobilization Type Rolling,Strumming Intensity/Depth Superficial Body Position Hooklying Comments w/AAROM elbow flex/ext pec Body Location L Mobilization Type Rolling Intensity/Depth Superficial Body Position Hooklying scalenes/SCM Body Location L Mobilization Type Rolling Intensity/Depth Superficial Body Position Supine Comments w/cervical rot Joint Mobilizations cervical Comments c4 tranverse R FM PT-OP-R Modalities Start: 10/26/21 07:58 Freq: Status: Active Protocol: Document 11/15/21 08:14 [facility] (Rec: 11/15/21 09:47 [facility] [id number]) Electric Stimulation Electric Stimulation Interferential Current (IFC) Body Location L shoulder Duration (Minutes) 15 Intensity 21 Combined With Heat/Cold Cold Pack PT-OP-T Assessment and Plan Start: 10/26/21 07:58 Freq: Status: Active Protocol: Document 11/15/21 08:14 [facility] (Rec: 11/15/21 09:47 [facility] [id number]) Physical Therapy Assessment Goals activities Short Term Goal (STG) pt will be able to dress and bath w/o inc shoulder pain. STG Duration 11/23/21 Acid Retort Operator Goal (LTG) Pt will be able to all typical rec activities including carrying heavy pack, kayaking and playing w/kids in her life w/o inc pain. LTG Duration 12/24/21 strength Short Term Goal (STG) Pt will be indep w/HEP STG Duration 11/23/21 Acid Retort Operator Goal (LTG) Pt will improve LUE strength to at least 4+/5 into all planes and EFT to at least 3/5 to show improved shoulder stability to allow return to rec activities. LTG Duration 12/24/21 ROM Short Term Goal (STG) pt will have full cervical ROM and improve L flex and abd to at least 130 deg to improve functional ability. STG Duration 11/25/21 Acid Retort Operator Goal (LTG) Pt will have full L shoulder ROM w/o pain in order to return to typical ADLs and rec activities w/o pain LTG Duration 12/24/21 quick dash Impairment 59.1 Short Term Goal (STG) pt will improve quick dash score to no higher than 39 to show improved functional ability. STG Duration 11/23/21 Detention Goal (LTG) pt will improve quick dash score to no higher than 9 to show improved functional ability. LTG Duration 12/24/21 Assessment Summary Assessment Pt did well with exercises. She had more ROM during pullys today than other days. She had imrpoved cervical lat flex to L after manual but still pain w/end range. Physical Therapy Plan Frequency and Duration Frequency of Treatment 1-2x/week Duration of Treatment 2 months Plan of Care Start Date 10/26/21 Plan of Care End Date 12/24/21 Next Visit Focus/Plan Next Note Type Treatment Note Next Visit Plan Cont UBE, cont gentle joint mobs & cervical mobility
--- NOTE | 2021-11-18 09:50 | PT.OTN ---
Current Diagnoses Other synovitis and tenosynovitis, unspecified shoulder (11/18/21) Abnormal posture (11/18/21) Weakness (11/18/21) Physical Therapy Treatment Note PT-OP-A Visit Information Start: 10/26/21 07:58 Freq: Status: Active Protocol: Document 11/18/21 08:58 [facility] (Rec: 11/18/21 09:50 [facility] [id number]) Out-Patient Physical Therapy Visit Information Visit Information Visit Type Treatment Note Visit Start Time 09:01 Visit Stop Time 09:44 Total Visit Minutes 43 Visit Number 6 Number of MAIL HANDLER SORTER Visits 0 PT-OP-B Current Condition Start: 10/26/21 07:58 Freq: Status: Active Protocol: Document 10/26/21 12:58 [facility] (Rec: 10/26/21 13:49 [facility] [id number]) Current Condition History of Current Condition Onset Date July Current Complaints L shoulder pain History of Current Condition Pt reports L shoulder pain that started in July w/ unknown cause. If she really stresses it with activity, then it is painful fro a while , but if rests, then it is better. Pt had a bout of pain in L shoulder that lasted a few months in the summer but it eventually went away. She was hoping that would happen this time around too. Pt reports history of neck pain mostly w/computer use. Pt is achey often d/t RA all over. She saw her parking ramp attendant who changed her meds but didn't really evaluate her shoulder. Saw primary who evaluated her and determined no need for imaging. Pt reports recently inc pain at night where her shoulder wakes her up and makes it difficult to get comfortable. Prior Treatments and Tests none Treatment Goals Patient/Caregiver Goals kayak w/o pain, be able to lift arm up to wash hair & put on a bra/take off, stop hurting PT-OP-C Subjective Start: 10/26/21 07:58 Freq: Status: Active Protocol: Document 11/18/21 08:58 [facility] (Rec: 11/18/21 09:50 [facility] [id number]) OP-PT Subjective Patient Comments Patient Comments Pt reports she was really sore after last time. She was numb and tingly after last session also. She feels like by yesterday afternoon, she was back to better and was able to do some weeding. She tried to stay in comfortable range w/ reaching. Overall, ROM and tingling is better. DId exercises yesterday and was okay. She has been icing PT-OP-F Manual Assessment Start: 10/26/21 07:58 Freq: Status: Active Protocol: Document 10/26/21 12:58 [facility] (Rec: 10/26/21 13:49 [facility] [id number]) Manual Assessments Soft Tissue Assessment Soft Tissue Mobility Assessment UT, LS, scalenes, SCM, SO,pec & post scap very tight and tender PT-OP-J Posture/Palpation/Skin Start: 10/26/21 07:58 Freq: Status: Active Protocol: Document 10/26/21 12:58 [facility] (Rec: 10/26/21 13:49 [facility] [id number]) Posture Evaluation [facility] Postural Classification System Elbow Flexion Test 1 PT-OP-K Range of Motion Start: 10/26/21 07:58 Freq: Status: Active Protocol: Document 10/26/21 12:58 [facility] (Rec: 10/26/21 13:49 [facility] [id number]) Cervical Spine Range of Motion Cervical Spine Active Degrees Flexion 45 Extension 52 Rotation Left 40 Rotation Right 42 Lateral Flexion Left 20 Lateral Flexion Right 21 Comments tightness L side w/B SB, stiffness w/rot on L side, pain w/flex Shoulder Goniometric Range of Motion Shoulder Right Active Testing Position Standing Flexion 172 Extension 50 Abduction 165 External Rotation at 90 degrees 90 Abduction External Rotation at 0 degrees Abduction 54 Internal Rotation Behind Back (text) T6 Left Active Testing Position Standing Flexion 111 Extension 36 Abduction 94 External Rotation at 0 degrees Abduction 39 Internal Rotation Behind Back (text) L glute Comments abd most painful, all others also painful PT-OP-L Special Tests Start: 10/26/21 07:58 Freq: Status: Active Protocol: Document 10/26/21 12:58 [facility] (Rec: 10/26/21 13:49 [facility] [id number]) Special Tests Cervical Spine Special Tests Vertebral Artery Test Results neg Spurling's Test Test Results neg Alar Ligament Test Results neg Shoulder Special Tests Sulcus Test Results neg Yergason's Biceps Test Results neg L Speed's Biceps Test Results neg L Benson Test Test Results mildpain Neer Impingement Test Results positive L Vigil Fadi Impingement Test Results positive L Empty Can Test Results positive L AC Joint Compression Test Results neg L Neural Special Tests- Upper Body Median Nerve Tension Test Results positive L Radial Nerve Tension Test Results postive L Ulnar Nerve Tension Test Results neg L PT-OP-M Strength Start: 10/26/21 07:58 Freq: Status: Active Protocol: Document 10/26/21 12:58 [facility] (Rec: 10/26/21 13:49 [facility] [id number]) Shoulder Strength Shoulder Manual Muscle Testing Right Flexion 4+ Good+ Extension 4+ Good+ Abduction (C5) 4+ Good+ External Rotation 5 Normal Internal Rotation 5 Normal Left Flexion 3+ Fair+ Extension 3+ Fair+ Abduction (C5) 3- Fair- External Rotation 4 Good Internal Rotation 4 Good Comments pain w/MMT PT-OP-Q Treatments Start: 10/26/21 07:58 Freq: Status: Active Protocol: Document 11/18/21 08:58 [facility] (Rec: 11/18/21 09:50 [facility] [id number]) Cardio Equipment Upper Body Ergometer (UBE) Duration (Minutes) 4 Seat Position 11 Height 3.5 Other fwd/back Therapeutic Exercises Supine Exercises flex Supine Exercise Name AROM Side bilateral Reps/Minutes 15 Comments chest press to flex Sidelying Exercises abd Side left Equipment Used 0#, 1# Reps/Minutes 2x10 open book Side left Reps/Minutes 15 Standing Exercises ER Side left Equipment Used Lvl 1 Reps/Minutes 15 Comments cues comfortable range pec stretch Standing Exercise Name corner pec Side bilateral Reps/Minutes 30 sec Comments comfortable range IR Standing Exercise Name w/towel Side left Reps/Minutes 30 sec x2 Manual Therapy Treatment Soft Tissue Mobilization scalenes/SCM Body Location L Mobilization Type Rolling Intensity/Depth Superficial Body Position Supine UT/LS Body Location L Mobilization Type Rolling,Strumming Intensity/Depth Moderate Body Position Supine Joint Mobilizations GH Joint L Direction distraction, inf, post Grade II Comments occilating PT-OP-R Modalities Start: 10/26/21 07:58 Freq: Status: Active Protocol: Document 11/15/21 08:14 [facility] (Rec: 11/15/21 09:47 [facility] [id number]) Electric Stimulation Electric Stimulation Interferential Current (IFC) Body Location L shoulder Duration (Minutes) 15 Intensity 21 Combined With Heat/Cold Cold Pack PT-OP-T Assessment and Plan Start: 10/26/21 07:58 Freq: Status: Active Protocol: Document 11/18/21 08:58 [facility] (Rec: 11/18/21 09:50 [facility] [id number]) Physical Therapy Assessment Goals activities Short Term Goal (STG) pt will be able to dress and bath w/o inc shoulder pain. STG Duration 11/23/21 Residential Goal (LTG) Pt will be able to all typical rec activities including carrying heavy pack, kayaking and playing w/kids in her life w/o inc pain. LTG Duration 12/24/21 strength Short Term Goal (STG) Pt will be indep w/HEP STG Duration 11/23/21 Environmental Conservation Professor Goal (LTG) Pt will improve LUE strength to at least 4+/5 into all planes and EFT to at least 3/5 to show improved shoulder stability to allow return to rec activities. LTG Duration 12/24/21 ROM Short Term Goal (STG) pt will have full cervical ROM and improve L flex and abd to at least 130 deg to improve functional ability. STG Duration 11/25/21 Environmental Conservation Professor Goal (LTG) Pt will have full L shoulder ROM w/o pain in order to return to typical ADLs and rec activities w/o pain LTG Duration 12/24/21 quick dash Impairment 59.1 Short Term Goal (STG) pt will improve quick dash score to no higher than 39 to show improved functional ability. STG Duration 11/23/21 Residential Goal (LTG) pt will improve quick dash score to no higher than 9 to show improved functional ability. LTG Duration 12/24/21 Assessment Summary Assessment Pt reports just feeling like shoulder was stretched after exercises but okay. Exercises were advanced to more stretches and AROM and strengthening exercises and pt tolerated well so given for HEP. MOre gentle today w/ manual. Physical Therapy Plan Frequency and Duration Frequency of Treatment 1-2x/week Duration of Treatment 2 months Plan of Care Start Date 10/26/21 Plan of Care End Date 12/24/21 Next Visit Focus/Plan Next Note Type Treatment Note Next Visit Plan Cont UBE, cont gentle joint mobs & cervical mobility-stay more superficial w/soft tissue work.
--- NOTE | 2021-11-23 11:32 | PT.OTN ---
Current Diagnoses Other synovitis and tenosynovitis, unspecified shoulder (11/23/21) Abnormal posture (11/23/21) Weakness (11/23/21) Physical Therapy Treatment Note PT-OP-A Visit Information Start: 10/26/21 07:58 Freq: Status: Active Protocol: Document 11/23/21 07:30 [facility] (Rec: 11/23/21 07:48 [facility] [id number]) Out-Patient Physical Therapy Visit Information Visit Information Visit Type Treatment Note Visit Start Time 07:30 Visit Stop Time 08:15 Total Visit Minutes 45 Visit Number 7 Number of BIOSTATISTICIAN Visits 0 PT-OP-B Current Condition Start: 10/26/21 07:58 Freq: Status: Active Protocol: Document 10/26/21 12:58 [facility] (Rec: 10/26/21 13:49 [facility] [id number]) Current Condition History of Current Condition Onset Date July Current Complaints L shoulder pain History of Current Condition Pt reports L shoulder pain that started in July w/ unknown cause. If she really stresses it with activity, then it is painful fro a while , but if rests, then it is better. Pt had a bout of pain in L shoulder that lasted a few months in the summer but it eventually went away. She was hoping that would happen this time around too. Pt reports history of neck pain mostly w/computer use. Pt is achey often d/t RA all over. She saw her neuro psych sales specialist who changed her meds but didn't really evaluate her shoulder. Saw primary who evaluated her and determined no need for imaging. Pt reports recently inc pain at night where her shoulder wakes her up and makes it difficult to get comfortable. Prior Treatments and Tests none Treatment Goals Patient/Caregiver Goals kayak w/o pain, be able to lift arm up to wash hair & put on a bra/take off, stop hurting PT-OP-C Subjective Start: 10/26/21 07:58 Freq: Status: Active Protocol: Document 11/23/21 07:30 [facility] (Rec: 11/23/21 07:48 [facility] [id number]) OP-PT Subjective Patient Comments Patient Comments Pt layed a lot of bark yesterday for 4 hours then a little more. Everything in her body is sore including shoulder but shoulder is no worse than rest of body Patient Questionnaires Quick Dash- Upper Extremity Quick Dash UE Score 36.6 Quick Dash- Work and Sports Modules Quick Dash W&S Score W-18.75 PT-OP-F Manual Assessment Start: 10/26/21 07:58 Freq: Status: Active Protocol: Document 10/26/21 12:58 [facility] (Rec: 10/26/21 13:49 [facility] [id number]) Manual Assessments Soft Tissue Assessment Soft Tissue Mobility Assessment UT, LS, scalenes, SCM, SO,pec & post scap very tight and tender PT-OP-J Posture/Palpation/Skin Start: 10/26/21 07:58 Freq: Status: Active Protocol: Document 11/23/21 07:30 [facility] (Rec: 11[facility]23/21 07:53 [id number] Posture Evaluation [facility] Postural Classification System Elbow Flexion Test 3 PT-OP-K Range of Motion Start: 10/26/21 07:58 Freq: Status: Active Protocol: Document 11/23/21 07:30 [facility] (Rec: 11/23/21 07:53 [facility] [id number]) Shoulder Goniometric Range of Motion Shoulder Left Active Testing Position Standing Flexion 136 Extension 48 Abduction 115 External Rotation at 90 degrees 75 Abduction External Rotation at 0 degrees Abduction 70 Internal Rotation Behind Back (text) T10 Comments all others also painful PT-OP-L Special Tests Start: 10/26/21 07:58 Freq: Status: Active Protocol: Document 10/26/21 12:58 [facility] (Rec: 10/26/21 13:49 [facility] [id number]) Special Tests Cervical Spine Special Tests Vertebral Artery Test Results neg Spurling's Test Test Results neg Alar Ligament Test Results neg Shoulder Special Tests Sulcus Test Results neg Yergason's Biceps Test Results neg L Speed's Biceps Test Results neg L Caldwell Test Test Results mildpain Neer Impingement Test Results positive L Vigil Fadi Impingement Test Results positive L Empty Can Test Results positive L AC Joint Compression Test Results neg L Neural Special Tests- Upper Body Median Nerve Tension Test Results positive L Radial Nerve Tension Test Results postive L Ulnar Nerve Tension Test Results neg L PT-OP-M Strength Start: 10/26/21 07:58 Freq: Status: Active Protocol: Document 11/23/21 07:30 [facility] (Rec: 11/23/21 07:53 [facility] [id number]) Shoulder Strength Shoulder Manual Muscle Testing Right Flexion 4+ Good+ Extension 5 Normal Abduction (C5) 5 Normal External Rotation 5 Normal Internal Rotation 5 Normal Left Flexion 4- Good- Extension 4 Good Abduction (C5) 4- Good- External Rotation 4+ Good+ Internal Rotation 5 Normal Comments pain w/MMT PT-OP-Q Treatments Start: 10/26/21 07:58 Freq: Status: Active Protocol: Document 11/23/21 07:30 [facility] (Rec: 11/23/21 07:48 [facility] [id number]) Therapeutic Exercises Supine Exercises flex Supine Exercise Name AROM Side bilateral Reps/Minutes 2 Comments chest press to flex Sidelying Exercises abd Side left Equipment Used 1# Reps/Minutes 10 open book Side left Reps/Minutes 15 Sitting Exercises pulleys Sitting Exercise Name 1. flex, scaption, abd Side bilateral Reps/Minutes 10 ea Standing Exercises flex Standing Exercise Name HAbd w/flex Side bilateral Equipment Used L1 Reps/Minutes 10 pec stretch Standing Exercise Name 1.corner pec 2. doorway arms ext Side bilateral Reps/Minutes 30 sec ea Comments comfortable range Ext Standing Exercise Name resisted ext to side Side left Equipment Used lvl 3 Reps/Minutes 15 ea IR Standing Exercise Name w/towel Side left Reps/Minutes 30 sec Manual Therapy Treatment Soft Tissue Mobilization biceps Body Location L Mobilization Type Rolling,Strumming Intensity/Depth Superficial Body Position Hooklying pec Body Location L Mobilization Type Rolling Intensity/Depth Superficial Body Position Hooklying scalenes/SCM Body Location L Mobilization Type Rolling Intensity/Depth Superficial Body Position Supine UT/LS Body Location L Mobilization Type Rolling,Strumming Intensity/Depth Moderate Body Position Supine Joint Mobilizations GH Joint L Direction distraction, inf, post Grade II Comments occilating PT-OP-R Modalities Start: 10/26/21 07:58 Freq: Status: Active Protocol: Document 11/15/21 08:14 [facility] (Rec: 11/15/21 09:47 [facility] [id number]) Electric Stimulation Electric Stimulation Interferential Current (IFC) Body Location L shoulder Duration (Minutes) 15 Intensity 21 Combined With Heat/Cold Cold Pack PT-OP-T Assessment and Plan Start: 10/26/21 07:58 Freq: Status: Active Protocol: Document 11/23/21 07:30 [facility] (Rec: 11/23/21 07:48 [facility] [id number]) Physical Therapy Assessment Goals activities Short Term Goal (STG) pt will be able to dress and bath w/o inc shoulder pain. STG Duration improved if she moves slowly Penitentiary Goal (LTG) Pt will be able to all typical rec activities including carrying heavy pack, kayaking and playing w/kids in her life w/o inc pain. LTG Duration can do activities but do inc pain and has to be careful strength Short Term Goal (STG) Pt will be indep w/HEP STG Duration achieved Penitentiary Goal (LTG) Pt will improve LUE strength to at least 4+/5 into all planes and EFT to at least 3/5 to show improved shoulder stability to allow return to rec activities. LTG Duration improved but still limited to cont HEP ROM Short Term Goal (STG) pt will have full cervical ROM and improve L flex and abd to at least 130 deg to improve functional ability. STG Duration achieved for abd Penitentiary Goal (LTG) Pt will have full L shoulder ROM w/o pain in order to return to typical ADLs and rec activities w/o pain LTG Duration much improved but still limited quick dash Impairment 59.1 Short Term Goal (STG) pt will improve quick dash score to no higher than 39 to show improved functional ability. STG Duration achieved to 36.36 [employer] Goal (LTG) pt will improve quick dash score to no higher than 9 to show improved functional ability. LTG Duration 12/24/21 Assessment Summary Assessment Pt is [place] at end of this week so this is last appointment. She has made good functional gains as notable by Quick Dash improvement and has improved w /LUE ROM and strength w/less pain. She still is limited and was given comprehensive HEP to work on cont deficits and if it does not improve more over next few weeks then to seek care in her new region. Physical Therapy Plan Discharge Physical Therapy Discharge Comments PT is moving later this week. pt to cont HEP
== END 2021-11-29 12:56 ==
LOC: PHYS 07:30
PROVIDERS: Family Provider Registered Nurse; PCP Registered Nurse; Referring Provider Registered Nurse; Visit Provider Registered Nurse
DX: M65.819 Other synovitis and tenosynovitis, unspecified shoulder (principal); R53.1 Weakness; R29.3 Abnormal posture
CPT/HCPCS: 97014; 97110; 97140; 97162; 97535; G0283

== ENCOUNTER → 2023-11-13 | Outpatient (CLI) | payer OTHER, SELFPAY ==
--- NOTE | 2023-11-13 13:10 | DI.MRI.S_ITS ---
PROCEDURE: MR AB PANCREATIC/MRCP PROTOCOL INDICATIONS: Cyst of pancreas TECHNIQUE: Coronal HASTE through the abdomen, axial 2-D FLASH in- and [id number], and breath-hold T2 FSE with fat saturation through the biliary system and pancreas. Oblique coronal and axial thin-slice HASTE, radial thick-slab HASTE centered on the extrahepatic bile ducts. 20 cc ProHance IV contrast. COMPARISON: [facility], CT, CT ABDOMEN PELVIS WITH CONTRAST, 07/18/2020, 12:01. Outside Facility, MR, MR AB PANCREATIC/MRCP PROTOCOL, 07/06/2022, 15:14. FINDINGS: Image quality: Diagnostic. Gallbladder: Absent. Biliary ducts: No biliary dilation. Pancreas: No ductal dilation. No peripancreatic fluid collection. No mass or cystic lesion. Normal intrinsic T1 hyperintense signal. No suspicious enhancement. No restricted diffusion. OTHER: Lung bases: Unremarkable. Liver: No solid mass. Spleen: Size is within normal limits. Adrenal Glands: No adrenal nodules. Kidneys and Ureters: No hydronephrosis. No solid mass. No complex renal cystic lesion which requires follow up. Small T2 hyperintense cyst in the left kidney. Stomach and Bowel: Normal colonic caliber, without significant wall thickening. Diverticulosis. Peritoneum: No abnormal intraperitoneal fluid. No free air. Ventral Wall: Fat containing umbilical hernia. Abdominal Nodes: No retroperitoneal or mesenteric adenopathy by size criteria. Vessels: Aorta and inferior vena cava are normal in size. Bones: No aggressive osseous abnormality. IMPRESSION: No pancreatic mass or cystic lesion. No biliary or pancreatic ductal dilatation. Post cholecystectomy. Dictated by: Sebastian Lantigua M.D. on 11/23/2023 at 13:03 Approved by: Sebastian Lantigua M.D. on 11/23/2023 at 13:17
== END ==
PROVIDERS: Family Provider Registered Nurse; PCP Registered Nurse; Referring Provider Registered Nurse; Visit Provider Registered Nurse
DX: K86.2 Cyst of pancreas (principal); Z90.49 Acquired absence of other specified parts of digestive tract
CPT/HCPCS: 74183; A9579

== ENCOUNTER → 2023-12-05 13:53 | Outpatient (CLI) | payer OTHER, SELFPAY ==
--- NOTE | 2023-12-05 13:54 | DI.MG.S_ITS ---
BILATERAL DIGITAL SCREENING MAMMOGRAM 3D/2D WITH CAD: 12/05/2023 CLINICAL: Routine screening. Comparison is made to exams dated: 09/01/2021 mammogram, 08/14/2019 mammogram - [facility], and 04/23/2018 mammogram - [facility]. There are scattered areas of fibroglandular density in both breasts (category b / 25%-50% glandular tissue). Current study was also evaluated with a Computer Aided Detection (CAD) system. No significant masses, calcifications, or other findings are seen in either breast. There has been no significant interval change. IMPRESSION: NEGATIVE There is no mammographic evidence of malignancy. A 1 year screening mammogram is recommended. Based on the Tyrer Cuzick model (a risk assessment model) the patient's lifetime risk is 4.0% and her 10 year risk is 1.3%. According to the ACR, ACS, and NCCN guidelines, an annual breast MRI exam along with mammogram is recommended if the patient's lifetime risk is 20% or greater. This exam was interpreted at Station ID: [id number]. NOTE: For mammograms, a report in lay terms will be sent to the patient. Approximately 15% of breast malignancies will not be visualized mammographically. In the management of a palpable breast mass, a negative mammogram must not discourage biopsy of a clinically suspicious lesion. Electronically Signed By: Deon rojas/antonino:12/05/2023 17:54:01 copy to: ROME JARVIS letter sent: Normal Exam ACR BI-RADS Category 1: Negative [id number]
== END ==
PROVIDERS: Family Provider Registered Nurse; PCP Registered Nurse; Referring Provider Registered Nurse; Visit Provider Registered Nurse
DX: Z12.31 Encounter for screening mammogram for malignant neoplasm of breast (principal); R92.323 Mammographic fibroglandular density, bilateral breasts
CPT/HCPCS: 77063; 77067